=== PATIENT | female | born 2000 | race Caucasian/White ===

== ENCOUNTER 2024-07-19 12:03 | Outpatient (CLI) | payer OTHER, SELFPAY ==
--- NOTE | ~2024-07-19 | MR_ITS ---
EXAMINATION: MR femur RT wo con DATE: 07/19/2024 12:56 INDICATION: Osteochondroma TECHNIQUE: Magnetic resonance imaging (MRI) of the right femur was performed without intravenous cont rast. Sequences included axial, sagittal and coronal T1-weighted FSE and fluid sensitive FSE STIR. COMPARISON: None. FINDINGS: There are multiple osteochondromas with typical cortical and medullary continuity at the distal femur s and proximal right tibia. These include a pedunculated osteochondroma extending proximally from the medial metaphyseal region of the distal right femur. The remaining osteochondromas at the bilateral distal femurs and the proximal right tibia are sessile. No evident thickened cartilaginous cap or tatiana id soft tissue mass to suggest malignant transformation. Bone marrow signal is normal throughout. No fracture or pathologic marrow replacing process. Physiologic amount of fluid in the bilateral hip and knee joints. There is a small fluid collection situated between the right iliotibial band and a smal l osteochondroma at the lateral supracondylar right femur consistent with a small bursa likely insign ificant iliotibial band friction syndrome. The musculature of the bilateral thighs appears normal and symmetric. IMPRESSION: 1. Several osteochondromas at the bilateral distal femurs and at the proximal right tibia without davis dent thickening of the cartilaginous caps or solid soft tissue component to suggest malignant transfo rmation. 2. Small bursal fluid collection between the right iliotibial band and a small osteochondral along th e lateral supracondylar right femur suggestive of iliotibial friction band syndrome. Reviewed, dictated and finalized at location A. IMPRESSION: 1. Several osteochondromas at the bilateral distal femurs and at the proximal r ight tibia without evident thickening of the cartilaginous caps or solid soft t issue component to suggest malignant transformation. 2. Small bursal fluid collection between the right iliotibial band and a small osteochondral along the lateral supracondylar right femur suggestive of iliotib ial friction band syndrome.
--- NOTE | ~2024-07-19 | US_ITS ---
Limited Abdominal Sonogram: Real-time sonographic imaging of the right upper quadrant was performed. Clinical History: Abnormal liver enzymes Findings: The liver appears mildly echogenic, with no evidence of mass lesion or bile duct dilatatio n. Main portal vein demonstrates normal direction of flow. The gallbladder is absent, compatible prio r cholecystectomy. The common bile duct measures 4 mm. The visualized pancreas, aorta, and IVC are u nremarkable. Impression: Probable diffuse fatty infiltration of the liver. Reviewed, dictated and finalized at location M. Impression: Probable diffuse fatty infiltration of the liver.
== END 2024-07-19 12:04 | disposition home or self-care (01) ==
PROVIDERS: PCP Nurse Practitioner Family; Visit Provider Nurse Practitioner Family
DX: R74.8 Abnormal levels of other serum enzymes (principal); E88.810 Metabolic syndrome; D46.9 Myelodysplastic syndrome, unspecified; Q78.6 Multiple congenital exostoses
CPT/HCPCS: 73718; 76705

== ENCOUNTER 2025-02-26 10:27 | Emergency (ER) | payer OTHER, SELFPAY ==
[2025-02-26 10:31] VITALS: BP 140/82; PULSE 83; RESP 16; TEMP 36.9; O2SAT 100
--- OUTSIDE RECORDS SUMMARY | 2025-02-26 11:36 | XMS_ITS | Encounter Summary ---
Author Organization [facility] Healthcare Address [address] [place] [address] Care Team Providers Care Medical Record Assistant Name Role Phone Mirna Rosenberg MD Primary Care Provider Rosa Armenta PARTITION MAKING MACHINE OPERATOR Unavailable [phone] Nadiya Smyth PARTITION MAKING MACHINE OPERATOR Unavailable [phone] Reason for Referral * MRI/CAT/PET Scan (Routine) - Closed Specialty Diagnoses / Procedures Referred By Contac t Referred To Contact Radiology Diagnoses Chronic nausea Constipation, unspecified constipation type Procedures CT Abdomen Pelvis W Contrast Anabel Santana PA [address] [facility] [place] [address] Phone: tel: fax: [address] [phone] Referral ID Status Reason Start Date Expiration Date Visits Re quested Visits Authorized [id number] Closed 02/17/2025 03/19/2026 1 1 Reason for Visit * MRI/CAT/PET Scan (Routine) - Closed Specialty Diagnoses / Procedures Referred By Contac t Referred To Contact Radiology Diagnoses Chronic nausea Constipation, unspecified constipation type Procedures CT Abdomen Pelvis W Contrast Anabel Santana PA [address] [facility] [place] [address] Phone: tel: fax: [facility] [address] [facility] [place] [address] Referral ID Status Reason Start Date Expiration Date Visits Re quested Visits Authorized [id number] Closed 02/17/2025 03/19/2026 1 1 Encounter Details Date Type Department Care Team (Latest Contact Info) Description 02/24/2025 9:40 AM CDT - 02/24/2025 11:59 PM CDT Hospital Encounter [facility] [address] [place] [id number] Chronic nausea; Constipation, unspecified constipation type Discharge Disposition: Discharge to home or self care Social History Tobacco Use Types Packs/Day Years Used Date Smoking Tobacco: Never Comments Unknown Sex and Gender Information Value Date Recorded Sex Assigned at Not on file 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 Gender Identity Not on file Sexual Orientation Not on file documented as of this encounter Medications at Time of Discharge cyproheptadine (PERIACTIN) 4 mg tablet Take 1 tablet (4 mg total) by mouth nightly lamoTRIgine (LaMICtal) 25 mg tablet Take 1 tablet (25 mg total) by mouth nightly 01/31/2025 omeprazole (PriLOSEC) 40 mg capsule Take 1 capsule (40 mg total) by mouth daily 30 capsule 11 02/17/2025 02/17/2026 PARoxetine (PAXIL) 30 mg tablet propranoloL (INDERAL) 10 mg tablet 1 tablet Orally Once a day at night for 30 days 01/02/2024 semaglutide (Ozempic) 1 mg/dose (4 mg/3 mL) pen injector injection Inject 1 mg under the skin every 7 days zolpidem CR (AMBIEN CR) 12.5 mg CR tablet 01/02/2024 documented as of this encounter Discharge Disposition Disposition Code Departure Means Destination Discharge to home or self care documented in this encounter Plan of Treatment Upcoming Encounters Date Type Department Care Team (Latest Contact Info) Description 03/24/2025 12:30 PM CDT Hospital Encounter [facility] [address] [facility] [address] [place] [address] Shabnam Aldana MD [address] [place] [address] 03/24/2025 12:30 PM CDT - 03/24/2025 1:00 PM CDT Surgery [facility] [place] [address] [facility] [address] [place] [address] Shabnam Aldana MD [address] [place] [address] ESOPHAGOGASTRODUODENOSCOPY Scheduled Procedures Name Priority Associated Diagnoses Date/Ti me ESOPHAGOGASTRODUODENOSCOPY Chronic nausea Constipation, unspecified constipation type 03/24/2025 12:30 PM CDT documented as of this encounter Procedures Procedure Name Priority Date/Time Associated Diagnosis Comments CT ABDOMEN PELVIS W CONTRAST Schedule Routine, Read Routine (OP Routine) 02/24/2025 10:15 AM CDT Chronic nausea Constipation, unspecified constipation type POCT CREATININE - DEVICE Routine 02/24/2025 10:04 AM CDT documented in this encounter Results * CT Abdomen Pelvis W Contrast (02/24/2025 10:15 AM CDT) Anatomical Region Laterality Modality Body N/A Computed Tomogra phy 02/24/2025 10:4 5 AM CDT Impressions 02/24/2025 10:45 AM CDT No acute abdominal process. Electronically signed by: Chester Chamberlain M.D. Narrative 02/24/2025 10:45 AM CDT EXAMINATION: Computed tomography of the abdomen and pelvis with intravenous contrast HISTORY: Nausea TECHNIQUE: Transaxial computed tomographic images of the abdomen and pelvis were obtained with intravenous contrast according to the standard protocol after the uneventful administration of intravenous contrast. FINDINGS: No comparison. No consolidation visualized lung bases. No suspicious findings liver, cholecystectomy fossa, there are system, adrenal, pancreas, or spleen. No hydronephrosis either kidney. Urinary bladder within expected limits. There is a benign left corpus luteum cyst. No suspicious adnexal or uterine findings. No acute process small or large bowel. Normal noninflamed appendix. Small fat-containing umbilical hernia. There is no evidence of hiatal hernia. No small bowel obstruction. Normal caliber abdominal aorta. No suspicious osseous lesion. Procedure Note Chester Chamberlain MD - 02/24/2025 EXAMINATION: Computed tomography of the abdomen and pelvis with intravenous contrast HISTORY: Nausea TECHNIQUE: Transaxial computed tomographic images of the abdomen and pelvis were obtained with intravenous contrast according to the standard protocol after the uneventful administration of intravenous contrast. FINDINGS: No comparison. No consolidation visualized lung bases. No suspicious findings liver, cholecystectomy fossa, there are system, adrenal, pancreas, or spleen. No hydronephrosis either kidney. Urinary bladder within expected limits. There is a benign left corpus luteum cyst. No suspicious adnexal or uterine findings. No acute process small or large bowel. Normal noninflamed appendix. Small fat-containing umbilical hernia. There is no evidence of hiatal hernia. No small bowel obstruction. Normal caliber abdominal aorta. No suspicious osseous lesion. IMPRESSION: No acute abdominal process. Electronically signed by: Chester Chamberlain M.D. Anabel MCKEON IMG CT PROCEDURES Final Result * POCT creatinine (02/24/2025 10:04 AM CDT) Creatinine POC 1.0 0.6 - 1.1 mg/dL Blood 02/24/2025 10:0 4 AM CDT 02/24/2025 10:04 AM CDT Nadiya Smyth PARTITION MAKING MACHINE OPERATOR LAB POCT ORDERABLES - D EVICE Final Result SEE CARMONA [facility] Department [place] [address] documented in this encounter Visit Diagnoses Diagnosis Chronic nausea Nausea alone Constipation Unspecified constipation Chronic nausea Nausea alone Constipation, unspecified constipation type Chronic nausea Nausea alone Constipation, unspecified constipation type documented in this encounter Administered Medications Inactive Administered Medications - up to 3 most recent administrations Medication Order MAR Action Action Date Dose Rate Site ioversoL (OPTIRAY 350) syringe 100 mL 100 mL, intravenous, Once in imaging, contrast, Starting on 02/24/25 at 1008, For 1 dose Contrast Given 02/24/2025 10:11 AM CDT 94 mL documented in this encounter Orders Medications Ordered That Federico ht Not Have Been Administered Count Last Ordered Date First Ordered Date ioversoL (OPTIRAY 350) syringe 100 mL 1 documented in this encounter Care Teams Medical Record Assistant Relationship Specialty Start Date End Date Mirna Rosenberg MD [address] [place] [address] PCP - General Family Medicine 12/08/23 Rosa Armenta NP [address] [place] [address] Nurse Practitioner 12/08/23 Nadiya Smyth NP [address] [place] [address] Nurse Practitioner Family Medicine 10/07/24 documented as of this encounter
--- OUTSIDE RECORDS SUMMARY | 2025-02-26 11:36 | XMS_ITS ---
Author Organization [facility] Address [address] [place] [address] Care Team Providers Care Flooring Machine Feeder Name Role Phone Sue Miller Primary Care Provider [phone] REASON FOR VISIT message Social History Sex Assigned At : Social History Observation Description Sex Assigned At Female Encounters Encounter Location Date Provider Diagnosis [address] [place] [address] 08/29/2024 Sue Miller Plan Of Treatment No Information Progress Notes * Filippo HANKSHeatherB:2000 (24 yo F)Acc No.[id number]:08/29/2024 Patient: Samreen HARRISON :2000 A ge:24 Y S ex:Female Address:[address] [place] [id number] * true * Date: Generated for Nancyi ng/Fatawannag/eTransmitting on: 0 02/26/2025 11:36 AM CDT
--- OUTSIDE RECORDS SUMMARY | 2025-02-26 11:36 | XMS_ITS | Encounter Summary ---
Author Organization [facility] Address [address] [place] [address] Phone Care Team Providers Care Supervisor Vacuum Metalizing Name Role Phone Mirna Rosenberg MD Primary Care Provider Rosa Armenta AUTO CLEANER Unavailable [phone] Ndaiya Smyth AUTO CLEANER Unavailable [phone] Encounter Details Date Type Department Care Team (Late st Contact Info) Description 02/24/2025 Results Follow-Up [facility] Gastro[facility]ology [address] [facility] [address] [place] [address] [place] [address] Anabel Santana PA [address] [facility] [place] [address] Social History Tobacco Use Types Packs/Day Years Used Date Smoking Tobacco: Never Comments Unknown Sex and Gender Information Value Date Recorded Sex Assigned at Not on file 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 Gender Identity Not on file Sexual Orientation Not on file documented as of this encounter Plan of Treatment Upcoming Encounters Date Type Department Care Team (Latest Contact Info) Description 03/24/2025 12:30 PM CDT Hospital Encounter [facility] [address] [facility] [address] [place] [address] Shabnam Aldana MD [address] [place] [address] 03/24/2025 12:30 PM CDT - 03/24/2025 1:00 PM CDT Surgery [facility] [place] [address] [facility] [address] [place] [address] Shabnam Aldana MD [address] [place] [address] ESOPHAGOGASTRODUODENOSCOPY Scheduled Procedures Name Priority Associated Diagnoses Date/Ti me ESOPHAGOGASTRODUODENOSCOPY Chronic nausea Constipation, unspecified constipation type 03/24/2025 12:30 PM CDT documented as of this encounter Visit Diagnoses Not on filedocumented in this encounter Care Teams Supervisor Vacuum Metalizing Relationship Specialty Start Date End Date Mirna Rosenberg MD [address] [place] [address] PCP - General Family Medicine 12/08/23 Rosa Armenta NP [address] [place] [address] Nurse Practitioner 12/08/23 Nadiya Smyth NP [address] [place] [address] Nurse Practitioner Family Medicine 10/07/24 documented as of this encounter
--- OUTSIDE RECORDS SUMMARY | 2025-02-26 11:36 | XMS_ITS | Clinical Summary ---
Author Organization [facility] Address [address] [place] [address] Care Team Providers Care Clerical Adviser Name Role Phone Mirna Rosenberg MD Primary Care Provider Rosa Armenta FORK REPAIRER Unavailable [phone] Nadiya Smyth FORK REPAIRER Unavailable [phone] Allergies No known active allergies Medications cyproheptadine (PERIACTIN) 4 mg tablet Take 1 tablet (4 mg total) by mouth nightly Active PARoxetine (PAXIL) 30 mg tablet Active propranoloL (INDERAL) 10 mg tablet 1 tablet Orally Once a day at night for 30 days 01/02/2024 Active zolpidem CR (AMBIEN CR) 12.5 mg CR tablet 01/02/2024 Active lamoTRIgine (LaMICtal) 25 mg tablet Take 1 tablet (25 mg total) by mouth nightly 01/31/2025 Active semaglutide (Ozempic) 1 mg/dose (4 mg/3 mL) pen injector injection Inject 1 mg under the skin every 7 days Active omeprazole (PriLOSEC) 40 mg capsule Take 1 capsule (40 mg total) by mouth daily 30 capsule 11 02/17/2025 Active Active Problems Problem Noted Date Diagnosed Date Chronic nausea 02/17/2025 Constipation 02/17/2025 Pain of left lower leg 12/11/2023 Osteochondroma of femur 12/11/2023 Osteochondroma of tibia 12/11/2023 Osteochondroma of ankle, left 11/16/2022 Sprain of anterior talofibular ligament of left ankle 11/14/2022 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, 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, 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 Encounters Date Type Department Care Team Description 02/24/2025 9:40 AM CDT - 02/24/2025 11:59 PM CDT Hospital Encounter [facility] [address] [place] [address] Chronic nausea; Constipation, unspecified constipation type Discharge Disposition: Discharge to home or self care 02/24/2025 Results Follow-Up [facility] [address] [place] [address] Advanced Medicine 12th [place] [address] [place] [address] Anabel Santana PA 02/18/2025 Results Follow-Up [facility] [address] [place] [address] Advanced Medicine 12th [place] [address] [place] [address] Anabel Santana PA 02/17/2025 3:15 PM CDT Lab [facility] [address] [place] [phone] Chronic nausea; Constipation, unspecified constipation type 02/17/2025 11:00 AM CDT Office Visit [facility] [address] [place] [address] Medicine 12th [place] [address] [place] [address] Anabel Santana PA Chronic nausea (Primary Dx); Constipation, unspecified constipation type; Elevated bilirubin from Last 3 Months Immunizations Immunization Administration Dates Next Due Hep A, Ped Unspecified 05/18/2006 Hep A, Pediatric 07/26/2007 Hep B, Adolescent or Pediatric 09/12/2001,1999,2000 MMR 06/27/2005,09/12/2001 Meningococcal Conjugate (Menveo) 05/31/2018 Meningococcal MCV4, Unspecified 08/23/2012 Pfizer SARS-CoV-2 Monovalent Vaccination (12+ Yrs) PURPLE 12/05/2021,06/25/2021,06/04/2021 Tdap 12/20/2022,08/23/2012 Varicella 07/26/2007,07/28/2005 Surgical History Surgery Date Site/Laterality Comments OSTEOCHONDROMA EXCISION 11/13/2013 - 11/12/2014 Left left forarme Social History Tobacco Use Types Packs/Day Years Used Date Smoking Tobacco: Never Tobacco Cessation:Counseling Given: Not Answered Comments Unknown Sex and Gender Information Value Date Recorded Sex Assigned at Not on file 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 Gender Identity Not on file Sexual Orientation Not on file Obstetrics History Last Filed Vital Signs Vital Sign Reading Time Taken Comments Blood Pressure 117/77 02/17/2025 10:55 AM CDT Pulse 89 02/17/2025 10:55 AM CDT Temperature 36.4 C (97.6 F) 02/17/2025 10:55 AM CDT Respiratory Rate - - Oxygen Saturation 100% 02/17/2025 10:55 AM CDT Inhaled Oxygen Concentration - - Weight 91.6 kg (202 lb) 02/17/2025 10:55 AM CDT Height 152.4 cm (5') 02/17/2025 10:55 AM CDT Body Mass Index 39.45 02/17/2025 10:55 AM CDT Plan of Treatment Upcoming Encounters Date Type Department Care Team (Latest Contact Info) Description 03/24/2025 12:30 PM CDT Hospital Encounter [facility] [address] [address] Shabnam Aldana MD [address] [facility] [place] [address] 03/24/2025 12:30 PM CDT - 03/24/2025 1:00 PM CDT Surgery [facility] Disease [address] [address] Shabnam Aldana MD [address] [facility] [place] [address] ESOPHAGOGASTRODUODENOSCOPY Scheduled Procedures Name Priority Associated Diagnoses Date/Ti me ESOPHAGOGASTRODUODENOSCOPY Chronic nausea Constipation, unspecified constipation type 03/24/2025 12:30 PM CDT Health Maintenance Due Date Last Done Comments Cervical Cancer Screening 2000 Depression Screening 2000 Hepatitis C Screening 2000 Regular Well Visit/Exam 18-64 2018 Covid-19 Vaccine ( season) 2024 12/05/2021, 06/25/2021, 06/04/2021 Influenza Vaccine (Season Ended) 2025 09/22/2021, 02/27/2015, 09/15/2009 DTaP/Tdap/Td Vaccine (7 - Td or Tdap) 12/20/2032 12/20/2022, 08/23/2012, 06/27/2005, Additional history exists Pneumococcal vaccine <65 Aged Out 03/08/2001, 11/14 No longer eligible based on patient's age to complete this topic Hepatitis B Screening Completed 09/12/2001 , 2000, 2000 Varicella Vaccines Completed 07/26/2007, 07/28/2005 HPV Vaccines Completed 2015, 06/2013, 08/23/2012 Procedures Procedure Name Priority Date/Time Associated Diagnosis Comments CT ABDOMEN PELVIS W CONTRAST Schedule Routine, Read Routine (OP Routine) 02/24/2025 10:15 AM CDT Chronic nausea Constipation, unspecified constipation type POCT CREATININE - DEVICE Routine 02/24/2025 10:04 AM CDT EGFR Routine 02/17/2025 1:16 PM CDT Chronic nausea Constipation, unspecified constipation type CBC WITHOUT DIFFERENTIAL Routine 02/17/2025 1:16 PM CDT Chronic nausea Constipation, unspecified constipation type TISSUE TRANSGLUTAMINASE, IGA Routine 02/17/2025 1:16 PM CDT Chronic nausea Constipation, unspecified constipation type IGA Routine 02/17/2025 1:16 PM CDT Chronic nausea Constipation, unspecified constipation type COMPREHENSIVE METABOLIC PANEL Routine 02/17/2025 1:16 PM CDT Chronic nausea Constipation, unspecified constipation type GAMMA GT Routine 02/17/2025 1:16 PM CDT Chronic nausea Constipation, unspecified constipation type from Last 3 Months Results * CT Abdomen Pelvis W Contrast [...] CDT 02/24/2025 10:04 AM CDT Nadiya Smyth FORK REPAIRER LAB POCT ORDERABLES - D EVICE Final Result [facility] Department [place] [address] * eGFR (02/17/2025 1:16 PM CDT) eGFR >90 >=60 mL/min/1. 73 m2 Comment: Interpretive Data Reference Interval Normal >/= 90 mL/min/1.73m2 Mildly decreased* 60 - 89 mL/min/1.73m2 Mildly to moderately decreased 45 - 59 mL/min/1.73m2 Moderately to severely decreased 30 - 44 mL/min/1.73m2 Severely decreased 15 - 29 mL/min/1.73m2 Kidney Failure < 15 mL/min/1.73m2 *Relative to young adult level Estimated glomerular filtration rate is determined by the 2020 CKD-EPI equation recommended by the National Kidney Foundation (A Unifying Approach to GFR Estimation: Recommendations of the NKF-ASK Task Force on Reassessing the Inclusion of Race in Diagnosing Kidney Disease, JASN 2020). The CKD-EPI equation should not be used for patients with unstable renal function and has not been validated in children and those over 70. Current interpretive data was last reviewed 2021. Blood 02/17/2025 1:16 PM CDT 02/17/2025 1:45 PM CDT Anabel Fabian Santana CT LAB BLOOD ORDERABL ES Final Result Performing Organization Address [facility] de Phone Number [facility] Department [place] [address] * Tissue transglutaminase IgA (TGG-IgA Ab) (02/17/2025 1:16 PM CDT) [facility] TTG ab, IgA <0.5 <=14.9 units/mL Comment: Interpretive data Negative: <15 units/mL Positive: > or equal to 15 units/mL Current interpretive data was last revised on 2017. Blood 02/17/2025 1:16 PM CDT 02/17/2025 1:41 PM CDT [facility] BLOOD [facility]ABL ES Final Result Performing Organization Address [facility] de Phone Number [facility] Department [place] [address] * CBC without differential (02/17/2025 1:16 PM CDT) [facility] WBC 8.72 3.80 - 9.90 K/cumm Hgb 13.8 11.9 - 15.5 g/dL [facility] Hct 39.7 35.6 - 45.5 % [facility] Plt 306 150 - 400 K/cumm [facility] MPV 12.1 9.1 - 12.3 fL [facility] RBC 4.61 3.90 - 5.20 M/cumm [facility] MCV 86.1 81.3 - 96.4 fL [facility] MCH 29.9 27.1 - 33.3 pg [facility] MCHC 34.8 32.3 - 35.7 g/dL [facility] RDW CV 12.8 11.1 - 14.9 % [facility] RDW SD 39.5 35.7 - 48.1 fL [facility] NRBC abs 0.00 0.00 - 0.01 K/cumm [facility] Blood 02/17/2025 1:16 PM CDT 02/17/2025 1:41 PM CDT Anabellindsay Marcelinomaida Santana PA LAB BLOOD ORDERABL ES Final Result Performing Organization Address City/[facility]/ZIP Co de Phone Number [facility] [place] [address] * Gamma GT (02/17/2025 1:16 PM CDT) [facility] GGT 19 5 - 35 Units/L Blood 02/17/2025 1:16 PM CDT 02/17/2025 1:41 PM CDT Anabel Fbaian Santana PA LAB BLOOD ORDERABL ES Final Result Performing Organization Address [facility] Co de Phone Number [facility] [place] [address] * IgA (02/17/2025 1:16 PM CDT) Pathologist [facility] Immunoglobulin A 205 70 - 400 mg/dL Blood 02/17/2025 1:16 PM CDT 02/17/2025 1:41 PM CDT Anabel Fabianmaida Goodsonbloomingtondiomedesi CT LAB BLOOD ORDERABL ES Final Result Performing Organization Address [facility] [place] [address] * (ABNORMAL) Comprehensive metabolic panel (02/17/2025 1:16 PM CDT) [facility] Sodium 141 135 - 145 mmol/L Potassium, pl 4.2 3.3 - 4.9 mmol/L [facility] Chloride 107 97 - 110 mmol/L [facility] CO2 26 22 - 32 mmol/L [facility] Anion gap 8 2 - 15 mmol/L [facility] BUN 8 6 - 25 mg/dL [facility] Creatinine 0.83 0.60 - 1.10 mg/dL [facility] Glucose 87 70 - 199 mg/dL [facility] Comment: Interpretive Data Fasting glucose >/= 126 mg/dl is diagnostic for diabetes. Fasting is defined as no caloric intake for at least 8 hours. Fasting glucose between 100 mg/dl to 125 mg/dl is diagnostic of prediabetes. In a patient with classic symptoms of hyperglycemia or hyperglycemic crisis, a random glucose >/= 200 mg/dl is diagnostic for diabetes. In the absence of unequivocal hyperglycemia, results should be confirmed by repeat testing. The classification and Diagnosis of Diabetes Diabetes Care 202; 46: S19-S40. Current interpretive data was last revised 2022. Calcium 10.1 8.5 - 10.3 mg/dL [facility] Bilirubin, total 1.5(H) 0.1 - 1.2 mg/dL [facility] Protein, pl 7.8 6.5 - 8.5 g/dL [facility] Albumin 4.4 3.5 - 5.0 g/dL [facility] Alk phos 66 40 - 130 Units/L [facility] ALT 35 7 - 45 Units/L [facility] AST 30 10 - 45 Units/L [facility] Blood 02/17/2025 1:16 PM CDT 02/17/2025 1:41 PM CDT us Anabel MCKEON LAB BLOOD ORDERABL ES Final Result [facility] Department [place] [address] from Last 3 Months Insurance [facility] H[facility]/PPO Address: [address] [place] [phone] [facility] H[facility]/PPO Address: [address] [address] Care Teams Clerical Adviser Relationship Specialty Start Date End Date Mirna Rosenberg MD [address] [place] [address] PCP - General Family Medicine 12/08/23 Rosa Armenta FORK REPAIRER [address] [place], [place] [id number] Nurse Practitioner 12/08/23 Nadiya Smyth NP [address] [place], [place] [id number] Nurse Practitioner Family Medicine 10/07/24
--- OUTSIDE RECORDS SUMMARY | 2025-02-26 11:36 | XMS_ITS | Encounter Summary ---
Author Organization [facility] Address [address] [place] [address] Phone Care Team Providers Care Ductfixing Plumber Name Role Phone Mirna Rosenberg MD Primary Care Provider Rosa Armenta ICU MANAGER Unavailable [phone] Nadiya Smyth ICU MANAGER Unavailable [phone] Encounter Details Date Type Department Care Team (Late st Contact Info) Description 02/18/2025 Results Follow-Up [facility] G[facility]enter[facility] [address] [facility] Advanced Medicine 12th [place] [address] [place] [address] Anabel Santana PA [address] [facility] [place] [address] Social History Tobacco Use Types Packs/Day Years Used Date Smoking Tobacco: Never Comments Unknown Sex and Gender Information Value Date Recorded Sex Assigned at Not on file 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 Gender Identity Not on file Sexual Orientation Not on file documented as of this encounter Plan of Treatment Upcoming Encounters Date Type Department Care Team (Latest Contact Info) Description 03/24/2025 12:30 PM CDT Hospital Encounter [facility] [address] [facility] [address] [place] [address] Shabnam Aldana MD [address] [place] [address] 03/24/2025 12:30 PM CDT - 03/24/2025 1:00 PM CDT Surgery [facility] [place] [address] [facility] [address] [place] [address] Shabnam Aldana MD [address] [place] [address] ESOPHAGOGASTRODUODENOSCOPY Scheduled Procedures Name Priority Associated Diagnoses Date/Ti me ESOPHAGOGASTRODUODENOSCOPY Chronic nausea Constipation, unspecified constipation type 03/24/2025 12:30 PM CDT documented as of this encounter Visit Diagnoses Not on filedocumented in this encounter Care Teams Ductfixing Plumber Relationship Specialty Start Date End Date Mirna Rosenberg MD [address] [place] [address] PCP - General Family Medicine 12/08/23 Rosa Armenta NP [address] [place] [address] Nurse Practitioner 12/08/23 Nadiya Smyth NP [address] [place] [address] Nurse Practitioner Family Medicine 10/07/24 documented as of this encounter
--- OUTSIDE RECORDS SUMMARY | 2025-02-26 11:36 | XMS_ITS ---
Author Organization [facility] Address [address] [place] [address] Care Team Providers Care Employment Consultant Name Role Phone Sue Miller Primary Care Provider [phone] REASON FOR VISIT letter Social History Sex Assigned At : Social History Observation Description Sex Assigned At Female Encounters Encounter Location Date Provider Diagnosis [address] [place] [address] 09/02/2024 Sue Miller Plan Of Treatment No Information Progress Notes * Filippo HANKSHeatherB:2000 (24 yo F)Acc No.[id number]:09/02/2024 Patient: Samreen HARRISON :2000 A ge:24 Y S ex:Female Address:[address] [place] [phone] * true * Date: Generated for Nancyi butch/[place]/eTransmitting on: 0 02/26/2025 11:35 AM CDT
--- OUTSIDE RECORDS SUMMARY | 2025-02-26 11:36 | XMS_ITS ---
Author Organization [facility] Address [address] [place] [address] Care Team Providers Care Door Clamp Operator Name Role Phone Sue Miller Primary Care Provider [phone] REASON FOR VISIT medication Social History Sex Assigned At : Social History Observation Description Sex Assigned At Female Encounters Encounter Location Date Provider Diagnosis [address] [place] [address] 08/28/2024 Sue Miller Plan Of Treatment No Information Progress Notes * Filippo HANKSHeatherB:2000 (24 yo F)Acc No.[id number]:08/28/2024 Patient: Samreen HARRISON :2000 A ge:24 Y S ex:Female Address:[address] [place] [phone] * true * Date: Generated for Nancyi ng/[place]/eTransmitting on: 0 02/26/2025 11:36 AM CDT
--- OUTSIDE RECORDS SUMMARY | 2025-02-26 11:36 | XMS_ITS | Referral Summary ---
Author Organization [facility] Address [address] [place] [address] Care Team Providers Care Chute Man Name Role Phone Mirna Rosenberg MD Primary Care Provider Rosa Armenta CREEL SELECTOR Unavailable [phone] Nadiya Smyth CREEL SELECTOR Unavailable [phone] Encounters Date Type Department Care Team Description 02/24/2025 Results Follow-Up [facility] Gastroenterology [address] [facility] Medicine 12th [place] [address] [place] [address] Anabel Santana PA 02/24/2025 9:40 AM CDT - 02/24/2025 11:59 PM CDT Hospital Encounter [facility] [address] [place] [phone] Chronic nausea; Constipation, unspecified constipation type Discharge Disposition: Discharge to home or self care 02/18/2025 Results Follow-Up [facility] Gastroenter[facility] [address] [facility] Medicine 12th [place] [address] [place] [address] Anabel Santana PA 02/17/2025 3:15 PM CDT Lab [facility] ([facility]) [address] [place] [phone] Chronic nausea; Constipation, unspecified constipation type 02/17/2025 11:00 AM CDT Office Visit [facility] Gastroenterology [address] [facility] 12th [place] [address] [place] [address] Anabel Santana PA Chronic nausea (Primary Dx); Constipation, unspecified constipation type; Elevated bilirubin from Last 3 Months Allergies No known active allergies Medications cyproheptadine [...] deformity, 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, 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 Immunizations Immunization Administration Dates Next Due Hep A, Ped Unspecified 05/18/2006 Hep A, Pediatric 07/26/2007 Hep B, Adolescent or Pediatric 09/12/2001,1999,2000 MMR 06/27/2005,09/12/2001 Meningococcal Conjugate (Menveo) 05/31/2018 Meningococcal MCV4, Unspecified 08/23/2012 Bindo SARS-CoV-2 Monovalent Vaccination (12+ Yrs) PURPLE 12/05/2021,06/25/2021,06/04/2021 Tdap 12/20/2022,08/23/2012 Varicella 07/26/2007,07/28/2005 Social History Tobacco Use Types Packs/Day Years Used Date Smoking Tobacco: Never Tobacco Cessation:Counseling Given: Not Answered Comments Unknown Sex and Gender Information Value Date Recorded Sex Assigned at Not on file 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 [employer] Gender Identity Not on file Sexual Orientation Not on file Last Filed Vital Signs Vital Sign Reading [...] Description 03/24/2025 12:30 PM CDT Hospital Encounter [facility] [address] [address] Shabnam Aldana MD [address] [address] 03/24/2025 12:30 PM CDT - 03/24/2025 1:00 PM CDT Surgery [facility] [address] [address] Shabnam Aldana MD [address] [address] ESOPHAGOGASTRODUODENOSCOPY Scheduled Procedures Name Priority Associated Diagnoses Date/Ti ut ESOPHAGOGASTRODUODENOSCOPY Chronic nausea Constipation, unspecified constipation type 03/24/2025 12:30 PM CDT Procedures Procedure Name Priority Date/Time Associated Diagnosis [...] * POCT creatinine (02/24/2025 10:04 AM CDT) Pathologist [facility] Creatinine POC 1.0 0.6 - 1.1 mg/dL Blood 02/24/2025 10:0 4 AM CDT 02/24/2025 10:04 AM CDT Nadiya Smyth NP LAB POCT ORDERABLES - D EVICE Final Result SEE [facility] Department [place] [address] * eGFR (02/17/2025 1:16 PM CDT) eGFR [...] PM CDT 02/17/2025 1:45 PM CDT Anabel MCKEON LAB BLOOD ORDERABL ES Final Result Performing Organization Address City/[facility] Co de Phone Number [facility] Department [place] [address] * Tissue transglutaminase IgA (TGG-IgA Ab) (02/17/2025 1:16 PM CDT) TTG ab, IgA <0.5 <=14.9 units/mL Comment: Interpretive data Negative: <15 units/mL Positive: > or equal to 15 units/mL Current interpretive data was last revised on 2017. Blood 02/17/2025 1:16 PM CDT 02/17/2025 1:41 PM CDT Anabel MCKEON LAB BLOOD ORDERABL ES Final Result SEE [facility] [place] [address] * CBC without differential (02/17/2025 1:16 PM CDT) [facility] WBC 8.72 3.80 - 9.90 K/cumm Hgb 13.8 11.9 - 15.5 g/dL [facility] Hct 39.7 35.6 - 45.5 % [facility] Plt 306 150 - 400 K/cumm [facility] MPV 12.1 9.1 - 12.3 fL [facility] RBC 4.61 3.90 - 5.20 M/cumm [facility] MCV 86.1 81.3 - 96.4 fL [facility] MCH 29.9 27.1 - 33.3 pg [facility] MCHC 34.8 32.3 - 35.7 g/dL [facility] RDW CV 12.8 11.1 - 14.9 % [facility] RDW SD 39.5 35.7 - 48.1 fL [facility] NRBC abs 0.00 0.00 - 0.01 K/cumm [facility] Blood 02/17/2025 1:16 PM CDT 02/17/2025 1:41 PM CDT Anabel MCKEON LAB BLOOD ORDERABL ES Final Result Performing Organization Address [facility] Co de Phone Number [facility] [place] [address] * Gamma GT (02/17/2025 1:16 PM CDT) [facility] GGT 19 5 - 35 Units/L Blood 02/17/2025 1:16 PM CDT 02/17/2025 1:41 PM CDT Anabel Fabian MCKEON LAB BLOOD ORDERABL ES Final Result Performing Organization Address City/[facility]/ZIP Co de Phone Number [facility] [place] [address] * IgA (02/17/2025 1:16 PM CDT) Immunoglobulin A 205 70 - 400 mg/dL Blood 02/17/2025 1:16 PM CDT 02/17/2025 1:41 PM CDT Anabel MCKEON LAB BLOOD ORDERABL ES Final Result [facility] [place] [address] * (ABNORMAL) Comprehensive metabolic panel (02/17/2025 1:16 PM CDT) Pathologist [facility] Sodium 141 135 - 145 mmol/L Potassium, pl 4.2 3.3 - 4.9 mmol/L [facility] Chloride 107 97 - 110 mmol/L [facility] CO2 26 22 - 32 mmol/L [facility] Anion gap 8 2 - 15 mmol/L [facility] BUN 8 6 - 25 mg/dL [facility] Creatinine 0.83 0.60 - 1.10 mg/dL [facility] Glucose 87 70 - 199 mg/dL [facility] Comment: Interpretive Data Fasting glucose >/= [...] classification and Diagnosis of Diabetes Diabetes Care 2021; 46: S19-S40. Current interpretive data was last revised 2022. Calcium 10.1 8.5 - 10.3 mg/dL [facility] Bilirubin, total 1.5(H) 0.1 - 1.2 mg/dL [facility] Protein, pl 7.8 6.5 - 8.5 g/dL [facility] Albumin 4.4 3.5 - 5.0 g/dL [facility] Alk phos 66 40 - 130 Units/L [facility] ALT 35 7 - 45 Units/L [facility] AST 30 10 - 45 Units/L [facility] Blood 02/17/2025 1:16 PM CDT 02/17/2025 1:41 PM CDT us Anabel MCKEON LAB BLOOD ORDERABL ES Final Result Performing Organization Address City/State/[facility] Co de Phone Number [facility] [place] [address] from Last 3 Months Insurance [facility] Care Teams Chute Man Relationship Specialty Start Date End Date Mirna Rosenberg MD [address] [place] [address] PCP - General Family Medicine 12/08/23 Rosa Armenta NP [address] [place] [address] Nurse Practitioner 12/08/23 Nadiya Smyth NP [address] [place] [address] Nurse Practitioner Family Medicine 10/07/24
--- OUTSIDE RECORDS SUMMARY | 2025-02-26 11:36 | XMS_ITS | Patient Health Record ---
Author Organization [facility] Address [address] [place] [address] Care Team Providers Care Enforcement Safety Officer Name Role Phone Sue Miller Primary Care Provider Mariecatarina Janae Unavailable [phone] Allergies No Known Allergies Results Component Value Reference Range Notes CBC With Differential/Platel et* Reviewed date:06/17/2024 06:13:04 PM Interpretation: Performing Lab:[facility] [place], [address] [facility] [facility] [address] [facility] Phone - [phone], Director - PhDRicmaryanni Notes/Report: WBC 8.2 3.4-10.8 x10E3/uL RBC 4.99 3.77-5.28 x10E6/uL Hemoglobin 14.9 11.1-15.9 g/dL Hematocrit 44.6 34.0-46.6 % MCV 89 79-97 fL MCH 29.9 26.6-33.0 pg MCHC 33.4 31.5-35.7 g/dL RDW 12.2 11.7-15.4 % Platelets 387 150-450 x10E3/uL Neutrophils 68 Not Estab. % Lymphs 22 Not Estab. % Monocytes 7 Not Estab. % Eos 2 Not Estab. % Basos 1 Not Estab. % Neutrophils (Absolute) 5.6 1.4-7.0 x10E3/uL Lymphs (Absolute) 1.8 0.7-3.1 x10E3/uL Monocytes(Absolute) 0.6 0.1-0.9 x10E3/uL Eos (Absolute) 0.2 0.0-0.4 x10E3/uL Baso (Absolute) 0.1 0.0-0.2 x10E3/uL Immature Granulocytes 0 Not Estab. % Immature Grans (Abs) 0.0 0.0-0.1 x10E3/uL TSH+Free T4* Reviewed date:06/17/2024 06:12:06 PM Interpretation: Performing Lab:[facility] [place], [address] [place] [address], Phone - [phone], Director - [facility] Notes/Report: TSH 0.915 0.450-4.500 uIU/mL T4,Free(Direct) 1.43 0.82-1.77 ng/dL Lipid Panel* Reviewed date:06/17/2024 06:12:45 PM Interpretation: Performing Lab:[facility] [address], Phone - [phone], Director - [facility] Notes/Report: Cholesterol, Total 153 100-199 mg/dL Triglycerides 77 0-149 mg/dL HDL Cholesterol 60 >39 mg/dL VLDL Cholesterol Neptali 15 5-40 mg/dL LDL Chol Calc (NIH) 78 0-99 mg/dL CMP 14 Comprehensive Metabol ic Panel* Reviewed date:06/17/2024 06:13:20 PM Interpretation: Performing Lab:[facility] [address], Phone - [phone], Director - [facility] Notes/Report: Glucose 142 70-99 mg/dL BUN 11 6-20 mg/dL Creatinine 0.81 0.57-1.00 mg/dL eGFR 105 >59 mL/min/1.73 BUN/Creatinine Ratio 14 9-23 Sodium 137 134-144 mmol/L Potassium 4.4 3.5-5.2 mmol/L Chloride 101 96-106 mmol/L Carbon Dioxide, Total 23 20-29 mmol/L Calcium 10.2 8.7-10.2 mg/dL Protein, Total 7.8 6.0-8.5 g/dL Albumin 4.8 4.0-5.0 g/dL Globulin, Total 3.0 1.5-4.5 g/dL Bilirubin, Total 1.6 0.0-1.2 mg/dL Alkaline Phosphatase 77 44-121 IU/L AST (SGOT) 43 0-40 IU/L ALT (SGPT) 60 0-32 IU/L Reason For Referral Reason Referral to [facility] for Insomnia not responsive to multiple medications Diagnosis 1 Sleep disturbance, u nspecified (G47.9) Diagnosis 2 PTSD (post-traumatic stress disorder) (F43.10) Diagnosis 3 Major depression (F3 2.9) Referral Organization [facility] Referring Provider First Name Janae Referring Provider Last Name Bereket Referring Provider Speciality Psychiatry Referred Provider Specialty Sleep Medici ne General Notes Janae Cuba 06:04:33 PM >Debbie I want to refer her to [facility]. Website link is [email or web address] , Phone number is [phone] and Fax is [phone]. Can you help her set up an appointment and send over last progress note and a copy of her GeneSight report? You can send over anything else they need. Thanks! Please also get her scheduled for a two-week F/U., HERIBERTO Longo Stephanie N 06/06/2024 04:04:18 PM >Insurance, medical summary, visit notes, and GeneSight report attached. Referral faxed., HERIBERTO Longo Stephanie N 06/12/2024 08:00:29 AM > Pt was notified of referral by Debbie Cagle. See telephone encounter dated 06/04 Clinical Notes [facility], [address], [place] [address], Voice: [phone], Referral Priority Routine Medications Medication SIG (Take, Route, Fr equency, Duration) Notes Start Date End Date Status Zolpidem Tartrate 5 MG 1 tablet at bedti me Orally Once a day for 30 days 08/27/2024 Active Melatonin 10 MG 1 tablet as needed a t bedtime Orally daily 07/09/2024 Active Melatonin 3 MG 1 capsule at bedtime Orally Once a day for 30 days Active Prazosin HCl 1 MG 1-3 capsules at bedt miryam Orally Once a day for 30 days Ac tive Vilazodone HCl 10 MG 1 tablet with food Orally Once a day for 30 days 08/27/2024 Active Social History Tobacco Use: Social History Observation Description Date Details (start date - stop date) Never Smoker NA - NA Sex Assigned At : Social History Observation Description Sex Assigned At Female Dont use, Tobacco Use/Smoking Question Answer Notes Are you a nonsmoker Problems Problem Type SNOMED Code ICD Code Onset Dates Problem Status W/U Status Risk Notes Problem Generalized anxiety disorder (25509992) Generalized anxiety disorder (F41.1) Active confirmed Problem Major depression (885525133) Major depression (F32.9) Active confirmed Problem Posttraumatic stress disorder (83568375) PTSD (post-traumatic stress disorder) (F43.10) Active confirmed Problem Sleep disturbance (40917765) Sleep disturbance, unspecified (G47.9) Active confirmed Vital Signs Heart Rate 77 /min 03/18/2024 Blood pressure diastolic 74 mm Hg 03/18/2024 Oximetry 98 % 03/18/2024 Blood pressure systolic 114 mm Hg 03/18/2024 Weight 247 lb 6 oz lbs 03/18/2024 Encounters Encounter Location Date Provider Diagnosis [address] [address] 06/13/2024 Janae Cuba Major depression F32.[address] [address] 03/18/2024 Sue Miller Major depression F32.9 ; PTSD (post-traumatic stress disorder) F43.10 ; Generalized anxiety disorder F41.1 and Sleep disturbance, unspecified G47.[address] [address] 04/24/2024 Sue Paul Major depression F32.9 ; PTSD (post-traumatic stress disorder) F43.10 ; Generalized anxiety disorder F41.1 and Sleep disturbance, unspecified G47.[address] [address] 05/10/2024 Janae Cuba Major depression F32.9 ; PTSD (post-traumatic stress disorder) F43.10 ; Generalized anxiety disorder F41.1 and Sleep disturbance, unspecified G47.[address] [address] 05/17/2024 Janae Sabblut Major depression F32.9 ; PTSD (post-traumatic stress disorder) F43.10 ; Generalized anxiety disorder F41.1 and Sleep disturbance, unspecified G47.[address] [address] 05/22/2024 Janae Sabblut Major depression F32.9 ; PTSD (post-traumatic stress disorder) F43.10 ; Generalized anxiety disorder F41.1 and Sleep disturbance, unspecified G47.[address] [address] 06/03/2024 Janae Sabblut Major depression F32.9 ; PTSD (post-traumatic stress disorder) F43.10 ; Generalized anxiety disorder F41.1 and Sleep disturbance, unspecified G47.[address] [address] 06/25/2024 Janae Sabblut Major depression F32.9 ; PTSD (post-traumatic stress disorder) F43.10 ; Generalized anxiety disorder F41.1 and Sleep disturbance, unspecified G47.[address] [address] 07/09/2024 Janae Sabblut Major depression F32.9 ; PTSD (post-traumatic stress disorder) F43.10 ; Generalized anxiety disorder F41.1 and Sleep disturbance, unspecified G47.9 [place] [address] [place] [address] 07/23/2024 Suemarnie Miller Major depression F32.9 ; PTSD (post-traumatic stress disorder) F43.10 ; Generalized anxiety disorder F41.1 and Sleep disturbance, unspecified G47.9 [place] [address] [place] [address] 08/27/2024 Suemarnie Miller Major depression F32.9 ; PTSD (post-traumatic stress disorder) F43.10 ; Generalized anxiety disorder F41.1 and Sleep disturbance, unspecified G47.[address] [address] 04/24/2024 Sue Miller [address] [address] 04/30/2024 Sue Miller [address] [address] 05/07/2024 Janae Cuba [address] [address] 06/04/2024 Janae Cuba Major depression F32.9 ; PTSD (post-traumatic stress disorder) F43.10 ; Sleep disturbance, unspecified G47.9 and Generalized anxiety disorder F41.[address] [place] [address] 07/19/2024 Sue Miller Major depression F32.9 and PTSD (post-traumatic stress disorder) F43.[address] [place] [address] 08/28/2024 Sue Miller [address] [address] 08/29/[address] [place] [address] 09/02/[address] [address] 03/07/2024 Sue Miller PTSD (post-traumatic stress disorder) F43.10 ; Sleep disturbance, unspecified G47.9 and Major depression F32.[address] [place] [address] 06/18/2024 Sue Miller Assessments Encounter Date Diagnosis (ICD Code) Assessment Notes Treatment Notes Treatment Clinical Notes Section Notes 03/07/2024 PTSD (post-traumati c stress disorder) (ICD-10 - F43.10) 03/18/2024 Major depression (ICD-10 - F32.9) Discussed r/b/se. Had increased SI with Seroquel. Hx of positive results with Effexor. May turn to SNRI again if needed. May look to SGA such as olanazapine for SI, may discuss lithium if needed. 04/24/2024 Major depression (ICD-10 - F32.9) Discussed r/b/se. Had increased SI with Seroquel. Hx of positive results with Effexor. May turn to SNRI again if needed. May look to SGA such as olanazapine for SI, may discuss lithium if needed. 05/10/2024 Major depression (ICD-10 - F32.9) Discussed r/b/se. Had increased SI with Seroquel. Hx of positive results with Effexor. May turn to SNRI again if needed. May look to SGA such as olanazapine for SI, may discuss lithium if needed. 05/17/2024 Major depression (ICD-10 - F32.9) Discussed r/b/se. Had increased SI with Seroquel. Hx of positive results with Effexor. May turn to SNRI again if needed. May look to SGA such as olanazapine for SI, may discuss lithium if needed. 05/22/2024 Major depression (ICD-10 - F32.9) Discontinuing paroxetine due to significant gene-drug interaction on gensight results. Starting desvenlafaxine over venlafaxine due to moderage gene-drug interaction with venlafaxine. 06/03/2024 Major depression (ICD-10 - F32.9) Discontinuing paroxetine due to significant gene-drug interaction on gensight results. Starting desvenlafaxine over venlafaxine due to moderage gene-drug interaction with venlafaxine. 06/04/2024 Major depression (ICD-10 - F32.9) 06/04/2024 PTSD (post-traumati c stress disorder) (ICD-10 - F43.10) 06/13/2024 Major depression (ICD-10 - F32.9) 06/25/2024 Major depression (ICD-10 - F32.9) Discontinuing paroxetine due to significant gene-drug interaction on gensight results. Starting desvenlafaxine over venlafaxine due to moderage gene-drug interaction with venlafaxine. 07/09/2024 Major depression (ICD-10 - F32.9) Client reporting nausea as a side effect of desvenlafaxine and is taking Zofran to help with symptoms. Wants to continue titrating up for now. Discontinuing paroxetine due to significant gene-drug interaction on gensight results. Starting desvenlafaxine over venlafaxine due to moderate gene-drug interaction with venlafaxine. 07/19/2024 Major depression (ICD-10 - F32.9) 07/23/2024 Major depression (ICD-10 - F32.9) Client had US of liver with PCP but no results at this time due to breakdown of medications- discussed liver enzymes and medications- avoid green tea/black tea when able. Decreasing and stopping Prestiq, start Cymbalta. Cymbalta with positive results for gene-drug on Genes[facility], starting. 08/27/2024 Major depression (ICD-10 - F32.9) Starting Viibryd at low dose, monitoring, due to geneSight results suggesting client may need lower dosing of this medication. Discussed r/b/se in length Cymbalta with positive results for gene-drug on Genesite, starting. Poor results with Cymbalta, Prestiq 08/27/2024 PTSD (post-traumati c stress disorder) (ICD-10 - F43.10) May look to D/C as client reports no improvement in nightmares Continue psychotherapy as scheduled. 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 Instructed to increase prazosin as needed by 1 mg every 3-4 days until nightmares have decreased/stopped OR client is having symptoms of low blood pressure. Plan to start when pharmacy has in stock. Continue psychotherapy as scheduled. 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 Instructed to increase prazosin as needed by 1 mg every 3-4 days until nightmares have decreased/stopped OR client is having symptoms of low blood pressure. Continue psychotherapy as scheduled. 06/25/2024 PTSD (post-traumati c stress disorder) (ICD-10 - F43.10) Continue psychotherapy as scheduled. 06/04/2024 Sleep disturbance, unspecified (ICD-10 - G47.9) 06/03/2024 PTSD (post-traumati c stress disorder) (ICD-10 - F43.10) 05/22/2024 PTSD (post-traumati c stress disorder) (ICD-10 - F43.10) 05/17/2024 PTSD (post-traumati c stress disorder) (ICD-10 - F43.10) 05/10/2024 PTSD (post-traumati c stress disorder) (ICD-10 - F43.10) 04/24/2024 PTSD (post-traumati c stress disorder) (ICD-10 - F43.10) 03/18/2024 PTSD (post-traumati c stress disorder) (ICD-10 - F43.10) 03/07/2024 Sleep disturbance, unspecified (ICD-10 - G47.9) 03/07/2024 Major depression (ICD-10 - F32.9) 03/18/2024 Generalized anxiety disorder (ICD-10 - F41.1) 04/24/2024 Generalized anxiety disorder (ICD-10 - F41.1) 05/10/2024 Generalized anxiety disorder (ICD-10 - F41.1) 05/17/2024 Generalized anxiety disorder (ICD-10 - F41.1) 05/22/2024 Generalized anxiety disorder (ICD-10 - F41.1) Take desvenlafaxine as prescribed. 06/03/2024 Generalized anxiety disorder (ICD-10 - F41.1) Take desvenlafaxine as prescribed. 06/04/2024 Generalized anxiety disorder (ICD-10 - F41.1) 06/25/2024 Generalized anxiety disorder (ICD-10 - F41.1) Take desvenlafaxine as prescribed. 07/23/2024 Generalized anxiety disorder (ICD-10 - F41.1) Take desvenlafaxine as prescribed. 07/09/2024 Generalized anxiety disorder (ICD-10 - F41.1) Take desvenlafaxine as prescribed. 08/27/2024 Generalized anxiety disorder (ICD-10 - F41.1) Take Viibryd 08/27/2024 Sleep disturbance, unspecified (ICD-10 - G47.9) Decreasing melatonin due to daytime fatigue- client was taking 10mg gummies per client. Using Ambien at this time as this has helped some with sleep in the past. May look to trial ramelteon. Client with inability to fall asleep with ambien ER, poor ability to stay asleep with IR, Lunesta ineffective. Client self-discontinue d doxepin and temazepam due to ineffectiveness. Past hx: mirtazapine, Seroquel, trazodone gave me severe nightmares, ambien IR, ambien ER, clonidine HCl, Lunesta, clonazepam ineffective, melatonin causes nightmares 07/23/2024 Sleep disturbance, unspecified (ICD-10 - G47.9) Client started taking melatonin again on own. Prescribing prazosin to mitigate nightmares. Client to continue keeping detailed sleep journal, and client has appt with [facility] in September 2024.for insomnia that is not responsive to multiple medications. Client with inability to fall asleep with ambien ER, poor ability to stay asleep with IR, Lunesta ineffective. Client self-discontinue d doxepin and temazepam due to ineffectiveness. Past hx: mirtazapine, Seroquel, trazodone gave me severe nightmares, ambien IR, ambien ER, clonidine HCl, Lunesta, clonazepam ineffective, melatonin causes nightmares 06/25/2024 Sleep disturbance, unspecified (ICD-10 - G47.9) Client with inability to fall asleep with ambien ER, poor ability to stay asleep with IR, Lunesta ineffective. Client self-discontinued doxepin and temazepam due to ineffectiveness. Client to continue keeping detailed sleep journal, and will referral out to sleep specialty clinic for insomnia that is not responsive to multiple medications - Client has appt with [facility] in September 2024. Past hx: mirtazapine, Seroquel, trazodone gave me severe nightmares, ambien IR, ambien ER, clonidine HCl, Lunesta, clonazepam ineffective, melatonin causes nightmares 07/09/2024 Sleep disturbance, unspecified (ICD-10 - G47.9) Client started taking melatonin again on own. Prescribing prazosin to mitigate nightmares. Client to continue keeping detailed sleep journal, and client has appt with [facility] in September 2024.for insomnia that is not responsive to multiple medications. Client with inability to fall asleep with ambien ER, poor ability to stay asleep with IR, Lunesta ineffective. Client self-discontinue d doxepin and temazepam due to ineffectiveness. Past hx: mirtazapine, Seroquel, trazodone gave me severe nightmares, ambien IR, ambien ER, clonidine HCl, Lunesta, clonazepam ineffective, melatonin causes nightmares 06/03/2024 Sleep disturbance, unspecified (ICD-10 - G47.9) Client with inability to fall asleep with ambien ER, poor ability to stay asleep with IR, Lunesta ineffective. Client self-discontinued doxepin and temazepam due to ineffectiveness. Client to continue keeping detailed sleep journal, and will referral out to sleep specialty clinic for insomnia that is not responsive to multiple medications. Past hx: mirtazapine, Seroquel, trazodone gave me severe nightmares, ambien IR, ambien ER, clonidine HCl, Lunesta, clonazepam ineffective, melatonin causes nightmares 05/22/2024 Sleep disturbance, unspecified (ICD-10 - G47.9) Client with inability to fall asleep with ambien ER, poor ability to stay asleep with IR, Lunesta ineffective. Client currently on doxepin and temazepam with little beneift. Client to continue regimen and keep detailed sleep journal for next 7-10 days until next appointment. Discussed with client the risks and benefits of benzodiapine use. Instructed on sleep hygiene. Consider a sleep study after sleep journal is obtained. Past hx: mirtazapine, Seroquel, trazodone gave me severe nightmares, ambien IR, ambien ER, clonidine HCl, Lunesta, clonazepam ineffective, melatonin causes nightmares 05/10/2024 Sleep disturbance, unspecified (ICD-10 - G47.9) Client with inability to fall asleep with ambien ER, poor ability to stay asleep with IR, Lunesta ineffective, clonazepam also ineffective. Client still getting [facility] testing - just received kit in the mail. Starting doxepin in the meantime, and will consider adding temazepam at next visit if doxepin not effective by itself. Discussed with client the risks and benefits of benzodiapine use. Past hx: mirtazapine, Seroquel, trazodone gave me severe nightmares, ambien IR, ambien ER, clonidine HCl, Lunesta 05/17/2024 Sleep disturbance, unspecified (ICD-10 - G47.9) Client with inability to fall asleep with ambien ER, poor ability to stay asleep with IR, Lunesta ineffective, clonazepam also ineffective. Client still getting GeneSight testing - just received kit in the mail. Starting doxepin in the meantime, and will consider adding temazepam at next visit if doxepin not effective by itself. Discussed with client the risks and benefits of benzodiapine use. Past hx: mirtazapine, Seroquel, trazodone gave me severe nightmares, ambien IR, ambien ER, clonidine HCl, Lunesta 04/24/2024 Sleep disturbance, unspecified (ICD-10 - G47.9) Client with inability to fall asleep with ambien ER, poor ability to stay asleep with IR, Lunesta ineffective, starting clonazepam while GeneSight testing is being completed- see TE. Discussed with client in length that this is a controlled substance and retirement use will not be recommended. PDMP checked without concerns. Past hx: mirtazapine, Seroquel, trazodone gave me severe nightmares, ambien IR, ambien ER, clonidine HCl, Lunesta 03/18/2024 Sleep disturbance, unspecified (ICD-10 - G47.9) Client with inability to fall asleep with ambien ER, poor ability to stay asleep with IR, changing to Lunesta. PDMP checked without concerns. Past hx: mirtazapine, Seroquel, trazodone gave me severe nightmares, ambien IR, ambien ER, clonidine HCl. 03/18/2024 Other Reasons, potential benefits, potential risks, interactions and side effects of all medications were discussed. The Patient/Guardian asked appropriate questions, appeared to understand the answers, and decided to accept the treatment and continue being followed. Alternatives and expected course without treatment were reviewed. The Patient/Guardian is aware of the need to contact the office or return for an earlier appointment if any problems or concerns arise. May also contact the 24-hour crisis hotline ([facility]), refer to the closest emergency room or call 911 if new symptoms arise of existing symptoms worsen. The Patient/Guardian is aware that this would apply to symptoms like: suicidal ideation, homicidal ideation, high risk behaviors, manic symptoms, psychotic symptoms, physical symptoms, or any other symptoms that may be dangerous to self or others. Greater than 50% of time spent on coordination and counseling where psychopharmacology as well as psychotherapeutic interventions were discussed along with review of treatments in the past. Education provided concerning need for adequate hydration. Patient/Guardian verbalized understanding of education, treatment plan and follow up. 04/24/2024 Other Reasons, potential benefits, potential risks, interactions and side effects of all medications were discussed. The Patient/Guardian asked appropriate questions, appeared to understand the answers, and decided to accept the treatment and continue being followed. Alternatives and expected course without treatment were reviewed. The Patient/Guardian is aware of the need to contact the office or return for an earlier appointment if any problems or concerns arise. May also contact the 24-hour crisis hotline ([facility]), refer to the closest emergency room or call 911 if new symptoms arise of existing symptoms worsen. The Patient/Guardian is aware that this would apply to symptoms like: suicidal ideation, homicidal ideation, high risk behaviors, manic symptoms, psychotic symptoms, physical symptoms, or any other symptoms that may be dangerous to self or others. Greater than 50% of time spent on coordination and counseling where psychopharmacology as well as psychotherapeutic interventions were discussed along with review of treatments in the past. Education provided concerning need for adequate hydration. Patient/Guardian verbalized understanding of education, treatment plan and follow up. This session was completed telephonically with client/parental/guard brie consent: Unable to determine movement status, assess appearance, affect, AIMS, or vital signs. 05/10/2024 Other Continue psychotherapy as scheduled. May self-administer medications or be administered own oral medications per [facility] protocols. Provided informed consent with understanding of side effects, adverse effects, risks and benefits as well as alternative treatments as previously discussed and with the above recommended medications & other aspects of the treatment program. Agrees to return sooner if symptoms worsen or suicidal or homicidal ideations occur. 05/17/2024 Other May self-admini ster medications or be administered own oral medications per [facility] protocols. Provided informed consent with understanding of side effects, adverse effects, risks and benefits as well as alternative treatments as previously discussed and with the above recommended medications & other aspects of the treatment program. Agrees to return sooner if symptoms worsen or suicidal or homicidal ideations occur. 05/22/2024 Other May self-admini ster medications or be administered own oral medications per [facility] protocols. Provided informed consent with understanding of side effects, adverse effects, risks and benefits as well as alternative treatments as previously discussed and with the above recommended medications & other aspects of the treatment program. Agrees to return sooner if symptoms worsen or suicidal or homicidal ideations occur. 06/03/2024 Other Continue psychotherapy as scheduled. May self-administer medications or be administered own oral medications per [facility] protocols. Provided informed consent with understanding of side effects, adverse effects, risks and benefits as well as alternative treatments as previously discussed and with the above recommended medications & other aspects of the treatment program. Agrees to return sooner if symptoms worsen or suicidal or homicidal ideations occur. 06/25/2024 Other May self-admini ster medications or be administered own oral medications per [facility] protocols. Provided informed consent with understanding of side effects, adverse effects, risks and benefits as well as alternative treatments as previously discussed and with the above recommended medications & other aspects of the treatment program. Agrees to return sooner if symptoms worsen or suicidal or homicidal ideations occur. 07/09/2024 Other May self-admini ster medications or be administered own oral medications per [facility] protocols. Provided informed consent with understanding of side effects, adverse effects, risks and benefits as well as alternative treatments as previously discussed and with the above recommended medications & other aspects of the treatment program. Agrees to return sooner if symptoms worsen or suicidal or homicidal ideations occur. 08/27/2024 Other Reasons, potential benefits, potential risks, interactions and side effects of all medications were discussed. The Patient/Guardian asked appropriate questions, appeared to understand the answers, and decided to accept the treatment and continue being followed. Alternatives and expected course without treatment were reviewed. The Patient/Guardian is aware of the need to contact the office or return for an earlier appointment if any problems or concerns arise. May also contact the 24-hour crisis hotline (R), refer to the closest emergency room or call 911 if new symptoms arise of existing symptoms worsen. The Patient/Guardian is aware that this would apply to symptoms like: suicidal ideation, homicidal ideation, high risk behaviors, manic symptoms, psychotic symptoms, physical symptoms, or any other symptoms that may be dangerous to self or others. Greater than 50% of time spent on coordination and counseling where psychopharmacology as well as psychotherapeutic interventions were discussed along with review of treatments in the past. Education provided concerning need for adequate hydration. Patient/Guardian verbalized understanding of education, treatment plan and follow up. This session was completed telephonically with client/parental/guard brie consent: Unable to determine movement status, assess appearance, affect, AIMS, or vital signs. Plan Of Treatment No Information Insurance Providers Payer Name Payer Address Payer Phone Subscriber Number Group Number Insured Name Patient Relationship to Insured Coverage Start Date Coverage End Date [facility] [address] [address] [place] [address] [id number] Samreen Hanks Self - patient is the insured 3 3 Medical (General) History Surgical History Surgery Date(Month/Year) osteochondroma x2 cholecystectomy 2020 Hospitalization History Reason Date(Month/Year) [facility] 2021
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
--- OUTSIDE RECORDS SUMMARY | 2025-02-26 11:36 | XMS_ITS | Clinical Summary ---
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 Sexual Orientation Not on file Last Filed Vital Signs Vital Sign Reading Time Taken Comments Blood Pressure 128/84 05/19/2017 6:10 PM CDT Pulse 88 05/19/2017 6:10 PM CDT Temperature - - Respiratory Rate - - Oxygen Saturation - - Inhaled Oxygen Concentration - - Weight 88.2 kg (194 lb 6 oz) 05/19/2017 6:10 PM CDT Height 152.4 cm (5') 05/19/2017 6:10 PM CDT Body Mass Index 37.96 05/19/2017 6:10 PM CDT Plan of Treatment Health Maintenance Due Date Last Done Comments Cervical Cancer Screening Pap Smear (Age 21 to 29) Every 3 Years 2000 Cervical Cancer Screening 2000 Annual Physical 2003 Hepatitis C 2018 COVID-19 Vaccine ( season) 2024 06/25/2021 DTaP, Tdap and Td Vaccines (8 - Td or Tdap) 01/10/2034 01/11/2024, 12/20/2022, 08/23/2012, Additional history exists Pneumococcal Vaccine: Pediatrics (0 to 5 Years) and At-Risk Patients (6 to 49 Years) Aged Out 03/08/2001, 2000 No longer eligibl e based on patient's age to complete this topic Hepatitis B Vaccines Completed 09/12/2001, 2000, 2000 HPV Vaccines Completed 2015, 06/2013, 08/23/2012 Meningococcal Vaccine Completed 05/31/2018, 012 Meningococcal B Vaccine Completed 07/05/2018, 05/31 RSV Immunizations Under 20 Months Aged Out No longer eligible based on patient's age to complete this topic Care Teams Mold Capper Helper Relationship Specialty Start Date End Date Mirna Rosenberg MD [address] [place] [address] PCP - General FAMILY PRACTICE 01/04/23
--- OUTSIDE RECORDS SUMMARY | 2025-02-26 11:36 | XMS_ITS | Clinical Summary ---
Author Organization [facility] Address [address] [facility] [place] [address] Care Team Providers Care Stamp Machine Servicer Name Role Phone Mirna Rosenberg MD Primary Care Provider [phone] Source Comments [facility],non-owned Affiliates and Associated Physician Practices is amultiple site organization consisting of ambulatory clinics and hospital sitesin [place], [place], [place] and [place]. This disclosure is being madepursuant to the Care Everywhere program and may not contain all information available regarding this patient. Last updated 18.[employer] Allergies No known active allergies Medications * Be aware that medications may not be up to date on this document. Alwaysverify current medications with the patient. naproxen (NAPROSYN) 500 MG tablet Take 1 tablet by mouth 2 times daily 60 tablet 01/21/2020 Active ondansetron, disintegrating, (ZOFRAN ODT) 4 MG tablet Take 1 tablet by mouth every 6 hours as needed for Nausea/Vomiti ng Allow tablet to dissolve on the tongue 10 tablet 01/21/2020 Active traMADol (Ultram) 50 MG tablet Take 1 (one) tablet by mouth every 6 hours as needed for Pain 20 tablet 11/11/2022 Active buPROPion (Wellbutrin) 75 MG tablet TAKE 1 TABLET BY MOUTH ONCE A DAY IN THE MORNING 09/15/2022 Active cloNIDine (Catapres) 0.2 MG tablet 11/05/2022 Active hydrOXYzine HCl (Atarax) 50 MG tablet 07/13/2022 Active mirtazapine (Remeron) 30 MG tablet 11/03/2022 Active prazosin (Minipress) 2 MG capsule 10/11/2022 Active QUEtiapine (SEROquel) 50 MG tablet 11/08/2022 Active traZODone (Desyrel) 100 MG tablet TAKE 1 TABLET(S) BY MOUTH AT BEDTIME 05/19/2022 Active venlafaxine XR 24hr (Effexor XR) 150 MG capsule 11/03/2022 Active Active Problems Problem Noted Date Diagnosed Date Osteochondroma of ankle, left 11/16/2022 Sprain of anterior talofibular ligament of left ankle 11/14/2022 Aftercare following surgery 04/13/2015 Osteochondroma of radius 02/26/2015 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 (F LUZONE; FLULAVAL; FLUARIX; AFLURIA QUADRIVALENT; 6MO+), 0.5 ML (IIV4) 02/27/2015 Social History Tobacco Use Types Packs/Day Years Used Date Smoking Tobacco: Never Smokeless Tobacco: Never Tobacco Cessation:Counseling Given: No Alcohol Use Standard Drinks/Week Comments Never 0 (1 standard drink = 0.6 oz pur e alcohol) AUDIT-C Answer Date Recorded Q1: How often do you have a drink containing alc ohol? 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 Gender Identity Not on file Sexual Orientation Not on file Last Filed Vital Signs Vital Sign Reading Time Taken Comments Blood Pressure 149/87 05/20/2021 11:38 PM CDT Pulse 91 05/20/2021 11:38 PM CDT Temperature 36.9 C (98.5 F) 05/20/2021 11:38 PM CDT Respiratory Rate 16 05/20/2021 11:38 PM CDT Oxygen Saturation 98% 05/20/2021 11:38 PM CDT Inhaled Oxygen Concentration - - Weight 99.8 kg (220 lb) 05/20/2021 6:56 PM CDT Height 152.4 cm (5') 05/20/2021 6:56 PM CDT Body Mass Index 42.97 05/20/2021 6:56 PM CDT Plan of Treatment Health Maintenance Due Date Last Done Comments PAP SMEAR 2000 HIV SCREENING 2015 HPV VACCINE (1 - 3-dose series) 2015 HEPATITIS C SCREENING 06/26/2018 DTAP/TDAP/TD VACCINES (1 - Tdap) 2019 HEPATITIS B VACCINE (1 of 3 - 19+ 3-dose series) 2019 CHLAMYDIA/GONORRHEA SCREENING 05/20/2022 05/20/2021 COVID-19 VACCINE (1 - 2023-2 5 season) 2024 DEPRESSION SCREENING 11/13/2024 INFLUENZA VACCINE (Season Ended) 2025 02/28/20 15 ZOSTER VACCINE (1 of 2) 2050 HIB VACCINE Aged Out No longer eligi ble based on patient's age to complete this topic MENINGOCOCCAL (Group B) VACC INE SHARED DECISION-MAKING Aged Out No longer eligibl e based on patient's age to complete this topic MENINGOCOCCAL GROUPS A/C/Y/W VACCINE Aged Out No longer eligible b ased on patient's age to complete this topic PNEUMOCOCCAL VACCINE Aged Out No long er eligible based on patient's age to complete this topic Medical Devices Implanted Type Area Solutions Development Analyst Device Identifier Shelf Expiration Date Model / Serial / Lot Allfuse Dbm 2.5cc Implanted:Qty: 1 on 02/26/2015 by Matt Cheng MD at [facility] Left: [employer] 05/13/2016 [id number] / / [id number] 7-Hole Plate Implanted:Qty: 1 on 02/26/2015 by Matt Cheng MD at [facility] Left: Wrist [employer] [id number] / / 2.7mm X 14mm Locking Screw Implanted:Qty: 1 on 02/26/2015 by Matt Cheng MD at [facility] Left: Wrist [employer] [id number] / / 2.7mm X 15mm Locking Screw Implanted:Qty: 1 on 02/26/2015 by Matt Cheng MD at [facility] Left: Wrist [employer] [id number] / / 2.7mm X 12mm Locking Screw Implanted:Qty: 2 on 02/26/2015 by Matt Cheng MD at [facility] Left: Wrist [id number] / / 2.7mm X 19mm Locking Screw Implanted:Qty: 1 on 02/26/2015 by Matt Cheng MD at [facility] Left: Wrist [id number] / / 2.7mm X 12mm Cortical Screw Implanted:Qty: 3 on 02/26/2015 by Matt Cheng MD at [facility] Left: [employer]rist [employer] [id number] / / 2.7mm X 15mm Cortical Screw Implanted:Qty: 1 on 02/26/2015 by Matt Cheng MD at [facility] Left: Wrist [employer] [id number] / / 2.7mm X 16mm Cortical Screw Implanted:Qty: 1 on 02/26/2015 by Matt Cheng MD at [facility] Left: Wrist [employer] [id number] / / Procedures Procedure Name Priority Date/Time Associated Diagnosis Comments CHLAMYDIA + GC AMPLIFIED PROBE STAT 05/20/2021 10:51 PM CDT from Last 3 Months or Most Recently Relevant to Health Maintenance Results * CHLAMYDIA + GC AMPLIFIED PROBE (STL) (05/20/2021 10:51 PM CDT) Chlamydia Amplified Probe Negative Negative 05/21/2021 11:16 AM CDT [facility] GC Amplified Probe Negative Negative 05/21/2021 11:16 AM CDT [facility] Microbiology PART OF UTERINE CERVIX / Unknown Collection / Unknown 05/20/2021 10:51 PM CDT 05/20/2021 10:51 PM CDT Narrative [facility] - 05/21/2021 11:16 AM CDT Results based on detection/no detection of ribosomal RNA by amplified method. Shi Murillo APRN-[facility] - MICROBIOLOGY ORDERABLES Final Result [facility] [address] [place] [address], [facility] [phone] from Last 3 Months or Most Recently Relevant to Health Maintenance Insurance [employer] Care Teams Stamp Machine Servicer Relationship Specialty Start Date End Date Mirna Rosenberg MD PCP - General Family Medicine 10/15/12
--- NOTE | 2025-02-26 11:49 | PC.NURSE ---
Pt attempted to urinate, reports unable to give sample. States only able to give small amount when having bowel movements. Bladder scan after attempt to urinate showed 1037 ml of urine. EDP made aware. VORB to initiate fu catheter.
[2025-02-26 11:51] LABS: Add Urine Microscopic? NO; Appearance Urine Clear (Clear); Bilirubin Urine Negative (Negative); Blood Urine Negative (Negative); Color Urine Yellow (Yellow); Glucose Urine UA Negative (Negative); Ketones Urine Negative (Negative); Leukocyte Esterase Ur Negative LEU/UL (Negative); Nitrate Urine Negative (Negative); Protein Urine Negative (Negative); Specific Grav Ur 1.008 (1.001-1.035)
[2025-02-26 11:52] LABS: BEDSIDEPREGUCG Negative (Negative)
--- NOTE | 2025-02-26 12:48 | ED.ABDPAIN ---
HPI - Abdominal Pain General Chief Complaint: Urogenital-Female Stated Complaint: abd pain, unable to urinate Time Seen by Provider: 02/26/25 11:51 History of Present Illness HPI narrative: Patient had n/v, went to OSH had normal CT sent home on zofran and since then hasn't been able to have a BM and having trouble urinating, just trickling. Tried suppositories. Related Data Home Medications ?Medication ?Instructions ?Recorded ?Confirmed ?Last Taken ?Type prazosin 2 mg capsule 2 mg PO QHS 03/21/23 05/03/23 Unknown History prazosin 5 mg capsule 5 mg PO QHS 03/21/23 05/03/23 Unknown History cyproheptadine 4 mg tablet 4 mg PO ONCE 04/12/23 05/03/23 Unknown History hydroxyzine HCl 50 mg tablet 50 mg PO QID PRN 04/12/23 05/03/23 Unknown History mirtazapine 30 mg tablet 30 mg PO DAILY 04/12/23 05/03/23 Unknown History quetiapine 200 mg tablet (Seroquel) 200 mg PO QHS 04/12/23 05/03/23 Unknown History venlafaxine 50 mg tablet 150 mg PO DAILY 04/12/23 05/03/23 Unknown History bupropion HCl 75 mg tablet 75 mg PO DAILY 04/13/23 05/03/23 Unknown History clonidine HCl 0.2 mg tablet 0.2 mg PO 05/01/23 05/03/23 Unknown History Allergies Allergy/AdvReac Type Severity Reaction Status Date / Time No Known Allergies Allergy Verified 02/26/25 10:31 Review of Systems Review of Systems: All systems reviewed & are unremarkable except as noted in HPI and below PMFSH Past Medical History Medical History Depression Osteochondroma of left forearm removed from left wrist PTSD (post-traumatic stress disorder) Surgical History Surgical History H/O wrist surgery osteochondroma History of cholecystectomy Status post cholecystectomy Family History Family History Mother Diabetes mellitus Father Obstructive sleep apnea Social History Social History (Updated 05/01/23 @ 14:24 by Tanya Tong [facility]) Years smoked: 0.50 Smoking status: Former smoker Tobacco type: e-cigarettes/vaping Alcohol intake: never Substance use: never Living arrangements: with family Occupation/Education: student Gender identity (if verbalized by the patient): Female Exam Narrative: EXAMINATION OF ORGAN SYSTEMS/BODY AREAS: Constitutional: Vital signs per nursing GENERAL:[No acute distress, non-toxic appearing.] HEAD: Normal with no signs of head trauma. EYES: EOMI, conjunctiva normal ENT: Hearing grossly intact LUNGS: Nonlabored breathing. HEART: [Regular rate and rhythm] ABD: [Soft], [nontender to palpation] EXT: Normal range of motion SKIN: [No rashes or lesions.] NEURO: [Alert and oriented x 3. No gross focal sensory or strength deficits.] PSYCH: Normal affect Course Vital Signs Vital signs: Vital Signs Temperature 98.5 F 02/26/25 10:31 Pulse Rate 83 02/26/25 10:31 Respiratory Rate 16 02/26/25 10:31 Blood Pressure 140/82 02/26/25 10:31 Pulse Oximetry 100 02/26/25 10:31 Temperature 98 F 02/26/25 15:56 Pulse Rate 90 02/26/25 15:56 Respiratory Rate 20 02/26/25 15:56 Blood Pressure 128/88 02/26/25 15:56 Pulse Oximetry 100 02/26/25 15:56 MDM - Abdominal Pain MDM Narrative Medical decision making narrative: 24F presenting with constipation and urinary retention for last 2-3 days. She was actually at an outside hospital 2 days ago for nausea vomiting after starting Ozempic and had normal labs and a CT scan. She has already tried suppositories and MiraLax at home without much improvement well-appearing here on exam with soft, nontender abdomen, on rectal exam there is soft brown stool in the vault but I cannot palpate any hard stool. She would like to have an enema so this is ordered. Urinalysis is normal and so are labs here. She is found to be retaining urine so Orellana placed and was able to drain a large amount of urine. I did let her know she should likely have this catheter in place until following up with Urology however she does not want to have a fully, she is aware that if she continues to be retaining or cannot urinate, she would have to return here and have another Orellana placed. Some stool was able to come out after the enema, at this point, we did discuss that she already had a recent CT 2 days ago which not show anything and at this point since she has no abdominal pain or tenderness or abnormal labs, there did not seem to be a point in repeating a CT. I did let her know that if her symptoms got much worse or anything else concerning she should return. Patient agreeable to this plan. Lab Data 02/26/25 13:08 02/26/25 13:08 Labs: Lab Results 02/26/25 02/26/25 02/26/25 Range/Units 11:41 11:48 13:08 WBC 6.9 (4.5-10.0) K/mm3 RBC 4.67 (4.2-5.4) M/mm3 Hgb 14.1 (12.0-15.0) g/dL Hct 42.1 (37.0-47.0) % MCV 90.1 (80-100) fl MCH 30.2 (26-34) pg MCHC 33.5 (32-36) g/dl RDW 12.6 (11.5-14.5) % Plt Count 270 (150-375) k/mm3 MPV 11.6 H (7.4-10.4) fl Immature Gran % (Auto) 0.3 (0-0.5) % Neut % (Auto) 64.5 (45.5-73.1) % Lymph % (Auto) 25.8 (18.3-44.2) % Smith % (Auto) 7.0 (2.6-8.5) % Eos % (Auto) 1.8 (0-4.4) % Baso % (Auto) 0.6 (0.2-1.2) % Lymph # (Auto) 1.77 (0.9-3.2) K/mm3 Smith # (Auto) 0.5 (0.1-0.6) K/mm3 Eos # (Auto) 0.1 (0-0.3) K/mm3 Baso # (Auto) 0.0 (0.0-0.1) K/mm3 Abs Immat Gran (auto) 0.02 (0.00-0.031) K/mm3 Absolute Neuts (auto) 4.4 (1.3-6.7) K/mm3 Absolute Nucleated RBC 0.000 (0.0-0.012) K/mm3 Nucleated RBC % 0.0 (0.0-0.2) % Sodium 137 (137-145) mmol/L Potassium 3.9 (3.4-5.0) mmol/L Chloride 105 (98-107) mmol/L Carbon Dioxide 22 (22-30) mmol/L Anion Gap 10 (4-12) mmol/L BUN 13 (7-17) mg/dL Creatinine 0.77 (0.7-1.0) mg/dL Estim Creat Clear Calc 98 ml/min Estimated GFR > 60 (59 - ) Glucose 98 (65-110) mg/dL Calcium 9.4 (8.4-10.2) mg/dL Total Bilirubin 1.8 H (0.2-1.3) mg/dL AST 32 (14-36) U/L ALT 26 (6-35) U/L Alkaline Phosphatase 63 (38-126) U/L Total Protein 8.0 (6.3-8.2) g/dL Albumin 4.7 (3.5-5.1) g/dL Urine Color Yellow (Yellow) Urine Appearance Clear (Clear) Urine pH 7.0 (5.0-9.0) Ur Specific [place] 1.008 (1.001-1.035) Urine Protein Negative (Negative) mg/dL Urine Glucose (UA) Negative (Negative) mg/dL Urine Ketones Negative (Negative) mg/dL Ur Blood (Man) Negative (Negative) Urine Nitrate Negative (Negative) Urine Bilirubin Negative (Negative) Urine Urobilinogen 1.0 (<2.0) mg/dL Leukocyte Esterase Rfl Negative (Negative) ANJANA/UL POC Urine HCG, Qual Negative (Negative) Discharge Plan Discharge Clinical Impression: Constipation, Acute urinary retention Patient Disposition: Home Condition: Stable Instructions: Constipation (ED), Acute Urinary Retention in Women (ED) Additional Instructions: Continue taking the MiraLax at home, you can also try the magnesium citrate; follow-up with your doctor. If you still cannot make any urine or if you have any abdominal pain or anything else concerning, come back to the ER immediately as you may need to have a Orellana catheter placed. Patient Language: Amharic Prescriptions: New magnesium citrate [Citrate of Magnesia] Solution 300 ml PO DAILY PRN (Reason: constipation) Qty: 296 0RF tamsulosin [Flomax] 0.4 mg capsule 0.4 mg PO DAILY Qty: 10 0RF No Action prazosin 5 mg capsule 5 mg PO QHS prazosin 2 mg capsule 2 mg PO QHS clonidine HCl 0.2 mg tablet 0.2 mg PO quetiapine [Seroquel] 200 mg tablet 200 mg PO QHS cyproheptadine 4 mg tablet 4 mg PO ONCE mirtazapine 30 mg tablet 30 mg PO DAILY hydroxyzine HCl 50 mg tablet 50 mg PO QID PRN venlafaxine 50 mg tablet 150 mg PO DAILY bupropion HCl 75 mg tablet 75 mg PO DAILY Follow-up/Referrals: Mirna Rosenberg MD [Primary Care Provider] - 2 Days Stand Alone Forms: Work/School Release IP
[2025-02-26 13:14] LABS: Basophils Percent Auto 0.6 % (0.2-1.2); Eosinophils Absolute Auto 0.1 K/mm3 (0-0.3); Eosinophils Percent Auto 1.8 % (0-4.4); Hematocrit 42.1 % (37.0-47.0); Hemoglobin 14.1 g/dL (12.0-15.0); Immature Granulocyte Absolute 0.02 K/mm3 (0.00-0.031); Immature Granulocyte Percent A 0.3 % (0-0.5); Lymphocytes Absolute Auto 1.77 K/mm3 (0.9-3.2); Lymphocytes Percent Auto 25.8 % (18.3-44.2); Mean Corpuscular HGB Conc 33.5 g/dl (32-36); Mean Corpuscular Hemoglobin 30.2 pg (26-34); Mean Corpuscular Volume 90.1 fl (80-100); Mean Platelet Volume 11.6 fl (7.4-10.4); Monocytes Absolute Auto 0.5 K/mm3 (0.1-0.6); Neutrophils Absolute Auto 4.4 K/mm3 (1.3-6.7); Neutrophils Percent Auto 64.5 % (45.5-73.1); Platelet Count Result 270 k/mm3 (150-375); Red Blood Count 4.67 M/mm3 (4.2-5.4); Red Cell Distribution Width 12.6 % (11.5-14.5); White Blood Count 6.9 K/mm3 (4.5-10.0)
[2025-02-26 13:26] LABS: Alanine Aminotransferase 26 U/L (6-35); Albumin Level 4.7 g/dL (3.5-5.1); Alkaline Phosphatase 63 U/L (38-126); Anion Gap 10 mmol/L (4-12); Aspartate Amino Transferase 32 U/L (14-36); Bilirubin,Total 1.8 mg/dL (0.2-1.3); Blood Urea Nitrogen 13 mg/dL (7-17); Calcium 9.4 mg/dL (8.4-10.2); Carbon Dioxide 22 mmol/L (22-30); Chloride 105 mmol/L (98-107); Estimated CRCL calculation 98 ml/min; Estimated Glomerular Filt Rate > 60; Glucose 98 mg/dL (65-110); Potassium 3.9 mmol/L (3.4-5.0); Sodium 137 mmol/L (137-145)
--- OUTSIDE RECORDS SUMMARY | 2025-02-26 13:28 | XMS_ITS | Referral Summary ---
Author Organization [facility] Address [address] [place] [address] Care Team Providers Care Printing Estimator Name Role Phone Mirna Rosenberg MD Primary Care Provider Rosa Armenta COMMUNITY SERVICE PATROL OFFICER Unavailable [phone] Nadiya Smyth COMMUNITY SERVICE PATROL OFFICER Unavailable [phone] Encounters Date Type Department Care Team Description 02/24/2025 Results Follow-Up [facility] [address] [facility] Medicine [address]th [place] [address] [place] [address] Anabel Santana PA 02/24/2025 9:40 AM CDT - 02/24/2025 11:59 PM CDT Hospital Encounter [facility] [address] [place] [address] Chronic nausea; Constipation, unspecified constipation type Discharge Disposition: Discharge to home or self care 02/18/2025 Results Follow-Up [facility] [address] [facility] Medicine [address] [place] [address] [place] [address] Anabel Santana PA 02/17/2025 3:15 PM CDT Lab [facility] ([facility]) [address] [place] [phone] Chronic nausea; Constipation, unspecified constipation type 02/17/2025 11:00 AM CDT Office Visit [facility] [address] [facility] [address]th [place] [address] [place] [address] Anabel Santana PA Chronic nausea (Primary Dx); [...] Conjugate (Menveo) 05/31/2018 Meningococcal MCV4, Unspecified 08/23/2012 [employer] SARS-CoV-2 Monovalent Vaccination (12+ Yrs) PURPLE 12/05/2021,06/25/2021,06/04/2021 Tdap 12/20/2022,08/23/2012 Varicella 07/26/2007,07/28/2005 Social History Tobacco Use Types Packs/Day Years Used Date Smoking Tobacco: Never Tobacco Cessation:Counseling Given: Not Answered Comments Unknown Sex and Gender Information Value Date Recorded Sex Assigned at Not on file 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 Gender Identity Not on file Sexual Orientation [...] Description 03/24/2025 12:30 PM CDT Hospital Encounter [facility] [address] [address] Shabnam lAdana MD [address] [address] 03/24/2025 12:30 PM CDT - 03/24/2025 1:00 PM CDT Surgery [facility] [address] [address] Shabnam Aldana MD [address] [address] ESOPHAGOGASTRODUODENOSCOPY Scheduled Procedures Name Priority Associated Diagnoses Date/Ti mo ESOPHAGOGASTRODUODENOSCOPY Chronic nausea Constipation, unspecified constipation type [...] POCT creatinine (02/24/2025 10:04 AM CDT) Pathologist [facility] Creatinine POC 1.0 0.6 - 1.1 mg/dL Blood 02/24/2025 10:0 4 AM CDT 02/24/2025 10:04 AM CDT Nadiya Smyth NP LAB POCT ORDERABLES - D EVICE Final Result SEE [facility] [place] [address] * eGFR (02/17/2025 1:16 PM CDT) eGFR [...] ORDERABL ES Final Result Performing Organization Address City/[facility] Co de Phone Number [facility] [place] [address] * Tissue transglutaminase IgA (TGG-IgA Ab) (02/17/2025 1:16 PM CDT) TTG ab, IgA <0.5 <=14.9 units/mL Comment: Interpretive data Negative: <15 units/mL Positive: > or equal to 15 units/mL Current interpretive data was last revised on 2017. Blood 02/17/2025 1:16 PM CDT 02/17/2025 1:41 PM CDT Anabel MCKEON LAB BLOOD ORDERABL ES Final Result SEE [facility] [place] [address] * CBC without differential (02/17/2025 1:16 PM CDT) [facility] WBC 8.72 3.80 - 9.90 K/cumm Hgb 13.8 11.9 - 15.5 g/dL [facility] Hct 39.7 35.6 - 45.5 % [facility] Plt 306 150 - 400 K/cumm [facility] MPV 12.1 9.1 - 12.3 fL [facility] RBC 4.61 3.90 - 5.20 M/cumm [facility] MCV 86.1 81.3 - 96.4 fL [facility] MCH 29.9 27.1 - 33.3 pg [facility] MCHC 34.8 32.3 - 35.7 g/dL [facility] RDW CV 12.8 11.1 - 14.9 % [facility] RDW SD 39.5 35.7 - 48.1 fL [facility] NRBC abs 0.00 0.00 - 0.01 K/cumm [facility] Blood 02/17/2025 1:16 PM CDT 02/17/2025 1:41 PM CDT Anabel MCKEON LAB BLOOD ORDERABL ES Final Result Performing Organization Address [facility] Co de Phone Number [facility] [place] [address] * Gamma GT (02/17/2025 1:16 PM CDT) [facility] GGT 19 5 - 35 Units/L Blood 02/17/2025 1:16 PM CDT 02/17/2025 1:41 PM CDT Anabel Fabian MCKEON LAB BLOOD ORDERABL ES Final Result Performing Organization Address City/[facility]/ZIP Co de Phone Number [facility] [place] [address] * IgA (02/17/2025 1:16 PM CDT) Immunoglobulin A 205 70 - 400 mg/dL Blood 02/17/2025 1:16 PM CDT 02/17/2025 1:41 PM CDT Anabel MCKEON LAB BLOOD ORDERABL ES Final Result [facility] [place] [address] * (ABNORMAL) Comprehensive metabolic panel (02/17/2025 1:16 PM CDT) Pathologist [facility] Sodium 141 135 - 145 mmol/L Potassium, pl 4.2 3.3 - 4.9 mmol/L [facility] Chloride 107 97 - 110 mmol/L [facility] CO2 26 22 - 32 mmol/L [facility] Anion gap 8 2 - 15 mmol/L [facility] BUN 8 6 - 25 mg/dL [facility] Creatinine 0.83 0.60 - 1.10 mg/dL [facility] Glucose 87 70 - 199 mg/dL [facility] Comment: Interpretive Data Fasting glucose >/= [...] 2022. Calcium 10.1 8.5 - 10.3 mg/dL [facility] Bilirubin, total 1.5(H) 0.1 - 1.2 mg/dL [facility] Protein, pl 7.8 6.5 - 8.5 g/dL [facility] Albumin 4.4 3.5 - 5.0 g/dL [facility] Alk phos 66 40 - 130 Units/L [facility] ALT 35 7 - 45 Units/L [facility] AST 30 10 - 45 Units/L [facility] Blood 02/17/2025 1:16 PM CDT 02/17/2025 1:41 PM CDT us Anabel MCKEON LAB BLOOD ORDERABL ES Final Result Performing Organization Address City/State/[facility] Co de Phone Number [facility] [place] [address] from Last 3 Months Insurance [facility] Care Teams Printing Estimator Relationship Specialty Start Date End Date Mirna Rosenberg MD [address] [place] [address] PCP - General Family Medicine 12/08/23 Rosa Armenta NP [address] [place] [address] Nurse Practitioner 12/08/23 Nadiya Smyth NP [address] [place] [address] Nurse Practitioner Family Medicine 10/07/24
--- OUTSIDE RECORDS SUMMARY | 2025-02-26 13:28 | XMS_ITS | Clinical Summary ---
Author Organization [facility] Address [address] [place] [address] Care Team Providers Care Relay Worker Name Role Phone Mirna Rosenberg MD Primary Care Provider Rosa Armenta HABILITATION WORKER Unavailable [phone] Nadiya Smyth HABILITATION WORKER Unavailable Allergies No known active allergies Medications cyproheptadine [...] 02/24/2025 11:59 PM CDT Hospital Encounter [facility] [address] [place] [address] Chronic nausea; Constipation, unspecified constipation type Discharge Disposition: Discharge to home or self care 02/24/2025 Results Follow-Up [facility] Gastroenterology [address] [place] [address] Advanced Medicine 12th [place] [address] [place] [address] Anabel Santana PA 02/18/2025 Results Follow-Up [facility] G[facility]enterology [address] [place] [address] Advanced Medicine 12th [place] [address] [place] [address] Anabel Santana PA 02/17/2025 3:[address] 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 Gender Identity Not on file Sexual Orientation [...] Description 03/24/2025 12:30 PM CDT Hospital Encounter [facility] Digestive Disease [address] [address] Shabnam Aldana MD [address] [facility] [place] [address] 03/24/2025 12:30 PM CDT - 03/24/2025 1:00 PM CDT Surgery [facility] Digestive Disease [address] [address] Shabnam Aldana MD [address] [facility] [place] [address] ESOPHAGOGASTRODUODENOSCOPY Scheduled Procedures Name Priority Associated Diagnoses [...] CDT 02/24/2025 10:04 AM CDT Nadiya Smyth HABILITATION WORKER LAB POCT ORDERABLES - D EVICE Final Result [facility] Department [place] [address] * eGFR (02/17/2025 1:16 PM CDT) eGFR [...] 02/17/2025 1:45 PM CDT Anabel Fabian Santana [place] LAB BLOOD ORDERABL ES Final Result Performing Organization Address [facility] de Phone Number [facility] Department [place] [address] * Tissue transglutaminase IgA (TGG-IgA Ab) (02/17/2025 1:16 PM CDT) [facility] TTG ab, IgA <0.5 <=14.9 units/mL Comment: Interpretive data Negative: <15 units/mL Positive: > or equal to 15 units/mL Current interpretive data was last revised on 2017. Blood 02/17/2025 1:16 PM CDT 02/17/2025 1:41 PM CDT [facility] BLOOD ORDERABL ES Final Result Performing Organization Address [facility] de Phone Number [facility] Department [place] [address] * CBC without differential (02/17/2025 1:16 PM CDT) [facility] WBC 8.72 3.80 - 9.90 K/cumm Hgb 13.8 11.9 - 15.5 g/dL [facility] Hct 39.7 35.6 - 45.5 % [facility] Plt 306 150 - 400 K/cumm [facility] MPV 12.1 9.1 - 12.3 fL [facility] RBC 4.61 3.90 - 5.20 M/cumm [facility] MCV 86.1 81.3 - 96.4 fL [facility] MCH 29.9 27.1 - 33.3 pg [facility] MCHC 34.8 32.3 - 35.7 g/dL [facility] RDW CV 12.8 11.1 - 14.9 % [facility] RDW SD 39.5 35.7 - 48.1 fL [facility] NRBC abs 0.00 0.00 - 0.01 K/cumm [facility] Blood 02/17/2025 1:16 PM CDT 02/17/2025 1:41 PM CDT Anabellindsay Marcelinomaida Santana PA LAB BLOOD ORDERABL ES Final Result Performing Organization Address City/[facility]/ZIP Co de Phone Number [facility] [place] [address] * Gamma GT (02/17/2025 1:16 PM CDT) [facility] GGT 19 5 - 35 Units/L Blood 02/17/2025 1:16 PM CDT 02/17/2025 1:41 PM CDT Anabel Fabian Santana PA LAB BLOOD ORDERABL ES Final Result Performing Organization Address [facility] Co de Phone Number [facility] [place] [facility] [place] [address] * IgA (02/17/2025 1:16 PM CDT) Pathologist [facility] Immunoglobulin A 205 70 - 400 mg/dL Blood 02/17/2025 1:16 PM CDT 02/17/2025 1:41 PM CDT Anabel Fabianmaida Goodsoneast blue hilldiomedesi [place] LAB BLOOD ORDERABL ES Final Result Performing Organization Address [facility] [place] [address] * (ABNORMAL) Comprehensive metabolic panel (02/17/2025 1:16 PM CDT) [facility] Sodium 141 135 - 145 mmol/L Potassium, pl 4.2 3.3 - 4.9 mmol/L [facility] Chloride 107 97 - 110 mmol/L [facility] CO2 26 22 - 32 mmol/L [facility] Anion gap 8 2 - 15 mmol/L [facility] BUN 8 6 - 25 mg/dL [facility] Creatinine 0.83 0.60 - 1.10 mg/dL [facility] Glucose 87 70 - 199 mg/dL [facility] Comment: Interpretive Data Fasting glucose [...] 2022. Calcium 10.1 8.5 - 10.3 mg/dL [facility] Bilirubin, total 1.5(H) 0.1 - 1.2 mg/dL [facility] Protein, pl 7.8 6.5 - 8.5 g/dL [facility] Albumin 4.4 3.5 - 5.0 g/dL [facility] Alk phos 66 40 - 130 Units/L [facility] ALT 35 7 - 45 Units/L [facility] AST 30 10 - 45 Units/L [facility] Blood 02/17/2025 1:16 PM CDT 02/17/2025 1:41 PM CDT us Anabel MCKEON LAB BLOOD ORDERABL ES Final Result [facility] [place] [address] from Last 3 Months Insurance [facility] Care Teams Relay Worker Relationship Specialty Start Date End Date Mirna Rosenberg MD [address] [place] [address] PCP - General Family Medicine 12/08/23 Rosa Armenta HABILITATION WORKER [address] [place], [place] [id number] Nurse Practitioner 12/08/23 Nadiya Smyth NP [address] [place], [place] [id number] Nurse Practitioner Family Medicine 10/07/24
--- OUTSIDE RECORDS SUMMARY | 2025-02-26 13:28 | XMS_ITS | Encounter Summary ---
Author Organization [facility] Address [address] [place] [address] Phone Care Team Providers Care Barrel Raiser Name Role Phone Mirna Rosenberg MD Primary Care Provider Rosa Armenta JEWELRY DESIGNER Unavailable [phone] Nadiya Smyth JEWELRY DESIGNER Unavailable [phone] Encounter Details Date Type Department Care Team (Late st Contact Info) Description 02/18/2025 Results Follow-Up [facility] Gastroenterology [address] [facility] Advanced Medicine 12th [place] [address] [place] [address] Anabel Santana PA [address] [facility] [place] [address] Social History Tobacco Use Types Packs/Day Years Used Date Smoking Tobacco: Never Comments Unknown Sex and Gender Information Value Date Recorded Sex Assigned at Not on file 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 [address] [place] [address] Shabnam Aldana MD [address] [place] [address] 03/24/2025 12:30 PM CDT - 03/24/2025 1:00 PM CDT Surgery [facility] Digestive Disease [place] [address] [facility] [address] [place] [address] Shabnam Aldana MD [address] [place] [address] ESOPHAGOGASTRODUODENOSCOPY Scheduled Procedures Name Priority Associated Diagnoses Date/Ti me ESOPHAGOGASTRODUODENOSCOPY Chronic nausea Constipation, unspecified constipation type 03/24/2025 12:30 PM CDT documented as of this encounter Visit Diagnoses Not on filedocumented in this encounter Care Teams Barrel Raiser Relationship Specialty Start Date End Date Mirna Rosenberg MD [address] [place] [address] PCP - General Family Medicine 12/08/23 Rosa Armenta NP [address] [place] [address] Nurse Practitioner 12/08/23 Nadiya Smyth NP [address] [place] [address] Nurse Practitioner Family Medicine 10/07/24 documented as of this encounter
--- OUTSIDE RECORDS SUMMARY | 2025-02-26 13:28 | XMS_ITS | Encounter Summary ---
Author Organization [facility] Address [address] [place] [address] Phone Care Team Providers Care Bread Supervisor Name Role Phone Mirna Rosenberg MD Primary Care Provider Rosa Armenta MUSEUM SPECIALIST Unavailable [phone] Nadiya Smyth MUSEUM SPECIALIST Unavailable [phone] Encounter Details Date Type Department Care Team (Late st Contact Info) Description 02/24/2025 Results Follow-Up [facility] Gastroenterology [address] [facility] Advanced Medicine 12th [place] [address] [place] [address] Anabel Santana PA [address] [facility] [place] [address] Social History Tobacco Use Types Packs/Day Years Used Date Smoking Tobacco: Never Comments Unknown Sex and Gender Information Value Date Recorded Sex Assigned at Not on file 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 Gender Identity Not on file Sexual Orientation Not on file documented as of this encounter Plan of Treatment Upcoming Encounters Date Type Department Care Team (Latest Contact Info) Description 03/24/2025 12:30 PM CDT Hospital Encounter [facility] Disease Center [address] [facility] [address] [place] [address] Shabnam Aldana MD [address] [place] [address] 03/24/2025 12:30 PM CDT - 03/24/2025 1:00 PM CDT Surgery [facility] Digestive Disease [place] [address] [facility] [address] [place] [address] Shabnam Aldana MD [address] [place] [address] ESOPHAGOGASTRODUODENOSCOPY Scheduled Procedures Name Priority Associated Diagnoses Date/Ti me ESOPHAGOGASTRODUODENOSCOPY Chronic nausea Constipation, unspecified constipation type 03/24/2025 12:30 PM CDT documented as of this encounter Visit Diagnoses Not on filedocumented in this encounter Care Teams Bread Supervisor Relationship Specialty Start Date End Date Mirna Rosenberg MD [address] [place] [address] PCP - General Family Medicine 12/08/23 Rosa Armenta NP [address] [place] [address] Nurse Practitioner 12/08/23 Nadiya Smyth NP [address] [place] [address] Nurse Practitioner Family Medicine 10/07/24 documented as of this encounter
--- OUTSIDE RECORDS SUMMARY | 2025-02-26 13:28 | XMS_ITS | Encounter Summary ---
Author Organization [facility] Address [address] [place] [address] Care Team Providers Care Hand Heel Seat Fitter Name Role Phone Mirna Rosenberg MD Primary Care Provider Rosa Armenta POWER PLANT OPERATOR APPRENTICE Unavailable [phone] Nadiya Smyth POWER PLANT OPERATOR APPRENTICE Unavailable [phone] Reason for Referral * MRI/CAT/PET Scan (Routine) - Closed Specialty Diagnoses / Procedures Referred By Contac t Referred To Contact Radiology Diagnoses Chronic nausea Constipation, unspecified constipation type Procedures CT Abdomen Pelvis W Contrast Anabel Santana PA [address] [facility] [place] [address] Phone: tel: fax: [address] [address] Referral ID Status Reason Start Date Expiration Date Visits Re quested Visits Authorized [id number] Closed 02/17/2025 03/19/2026 1 1 Reason for Visit * MRI/CAT/PET Scan (Routine) - Closed Specialty Diagnoses / Procedures Referred By Contac t Referred To Contact Radiology Diagnoses Chronic nausea Constipation, unspecified constipation type Procedures CT Abdomen Pelvis W Contrast Anabel Santana PA [address] [facility] [place] [address] Phone: tel: fax: [facility] [address] [facility] [place] [address] Referral ID Status Reason Start Date Expiration Date Visits Re quested Visits Authorized [id number] Closed 02/17/2025 03/19/2026 1 1 Encounter Details Date Type Department Care Team (Latest Contact Info) Description 02/24/2025 9:40 AM CDT - 02/24/2025 11:59 PM CDT Hospital Encounter [facility] [address] [place] [address] Chronic nausea; Constipation, unspecified constipation type Discharge Disposition: Discharge to home or self care Social History Tobacco Use Types Packs/Day Years Used Date Smoking Tobacco: Never Comments Unknown Sex and Gender Information Value Date Recorded Sex Assigned at Not on file 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 Gender Identity Not on file Sexual Orientation [...] Description 03/24/2025 12:30 PM CDT Hospital Encounter [facility] [address] [facility] [address] [place] [address] Shabnam Aldana MD [address] [place] [address] 03/24/2025 12:30 PM CDT - 03/24/2025 1:00 PM CDT Surgery [facility] Digestive Disease [place] [address] [facility] [address] [place] [address] Shabnam Aldana MD [address] [place] [address] ESOPHAGOGASTRODUODENOSCOPY Scheduled Procedures Name Priority Associated Diagnoses [...] AM CDT 02/24/2025 10:04 AM CDT Nadiya Smtyh POWER PLANT OPERATOR APPRENTICE LAB POCT ORDERABLES - D EVICE Final Result [facility] [place] [address] documented in this encounter Visit Diagnoses Diagnosis [...] 1 documented in this encounter Care Teams Hand Heel Seat Fitter Relationship Specialty Start Date End Date Mirna Rosenberg MD [address] [place] [address] PCP - General Family Medicine 12/08/23 Rosa Armenta NP [address] [place] [address] Nurse Practitioner 12/08/23 Nadiya Smyth NP [address] [place] [address] Nurse Practitioner Family Medicine 10/07/24 documented as of this encounter
--- OUTSIDE RECORDS SUMMARY | 2025-02-26 13:29 | XMS_ITS | Clinical Summary ---
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
--- OUTSIDE RECORDS SUMMARY | 2025-02-26 13:29 | XMS_ITS | Clinical Summary ---
Author Organization [employer] Address [address] [facility] [place] [address] Care Team Providers Care Slasher Tender Helper Name Role Phone Mirna Rosenberg MD Primary Care Provider Source Comments [employer],non-owned Affiliates and Associated Physician Practices is amultiple site organization consisting of ambulatory clinics and hospital sitesin [place], [place], [place] and [place]. This disclosure is being madepursuant to the Care Everywhere program and may not contain all information available regarding this patient. 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 Gender Identity Not on file Sexual Orientation [...] this topic Medical Devices Implanted Type Area Furniture Finisher Device Identifier Shelf Expiration Date Model / Serial / Lot Allfuse Dbm 2.5cc Implanted:Qty: 1 on 02/26/2015 by Matt Cheng MD at [facility] Left: [employer] 05/13/2016 [id number] / / [id number] 7-Hole Plate Implanted:Qty: 1 on 02/26/2015 by Matt Cheng MD at [facility] Left: Wrist [employer] [id number] / / 2.7mm X 14mm Locking Screw Implanted:Qty: 1 on 02/26/2015 by Matt Cheng MD at [facility] Left: Wrist [employer] [id number] / / 2.7mm X 15mm Locking Screw Implanted:Qty: 1 on 02/26/2015 by Matt Cheng MD at [facility] Left: Wrist [employer] [id number] / / 2.7mm X 12mm Locking Screw Implanted:Qty: 2 on 02/26/2015 by Matt Cheng MD at [facility] Left: Wrist [id number] / / 2.7mm X 19mm Locking Screw Implanted:Qty: 1 on 02/26/2015 by Matt Cheng MD at [facility] Left: Wrist [id number] / / 2.7mm X 12mm Cortical Screw Implanted:Qty: 3 on 02/26/2015 by Matt Cheng MD at [facility] Left: Wrist [employer] [id number] / / 2.7mm X 15mm Cortical Screw Implanted:Qty: 1 on 02/26/2015 by Matt Cheng MD at [facility] Left: Wrist [employer] [id number] / / 2.7mm X 16mm Cortical Screw Implanted:Qty: 1 on 02/26/2015 by Matt Cheng MD at [facility] Left: Wrist [employer] [id number] / / Procedures Procedure Name Priority Date/Time Associated Diagnosis Comments CHLAMYDIA + GC AMPLIFIED PROBE STAT 05/20/2021 10:51 PM CDT from Last 3 Months or Most Recently Relevant to Health Maintenance Results * CHLAMYDIA + GC AMPLIFIED PROBE (STL) (05/20/2021 10:51 PM CDT) Chlamydia Amplified Probe Negative Negative 05/21/2021 11:16 AM CDT [facility] GC Amplified Probe Negative Negative 05/21/2021 11:16 AM CDT [facility] Microbiology PART OF UTERINE CERVIX / Unknown Collection / Unknown 05/20/2021 10:51 PM CDT 05/20/2021 10:51 PM CDT Narrative [facility] - 05/21/2021 11:16 AM CDT Results based on detection/no detection of ribosomal RNA by amplified method. Shi Murillo APRN-[facility] - MICROBIOLOGY ORDERABLES Final Result [facility] [address] [place] [address], [facility] [phone] from Last 3 Months or Most Recently Relevant to Health Maintenance Insurance [facility] Care Teams Slasher Tender Helper Relationship Specialty Start Date End Date Mirna Rosenberg MD PCP - General Family Medicine 10/15/12
[2025-02-26 15:56] VITALS: BP 128/88; PULSE 90; RESP 20; TEMP 36.6; O2SAT 100
== END 2025-02-26 16:01 | disposition home or self-care (01) ==
PROVIDERS: Emergency Medicine; Emergency Provider Emergency Medicine; PCP Family Medicine
DX: K59.00 Constipation, unspecified (principal); R33.9 Retention of urine, unspecified; F32.A Depression, unspecified; F43.10 Post-traumatic stress disorder, unspecified; Z90.49 Acquired absence of other specified parts of digestive tract; Z79.899 Other long term (current) drug therapy
CPT/HCPCS: 36415; 51702; 80053; 81003; 81025; 85025; 99283